=== PATIENT | female | born 1930 | race Caucasian/White ===

== ENCOUNTER 2017-01-17 12:10 | Inpatient (IN) | payer MEDICARE ==
[2017-01-17] VITALS (23 sets, daily range): BP systolic 84–118; BP diastolic 57–75
[~2017-01-17] VITALS: Ht 162.6 cm; Wt 63.5 kg
[2017-01-17] MEDS ORDERED: IV NS 0.9% 1,000 ML BAG IV ONE ×2 (12:30→14:00)
[2017-01-17] MEDS ORDERED: VANCOMYCIN 1 GM in IV D5W 250 ML IV ONE ×2 (12:30→14:30)
[2017-01-17] MEDS ORDERED: IV SET PRIMARY 1 EA INFUS.SET MC ONE (12:30)
[2017-01-17] MEDS ORDERED: ACETAMINOPHEN 650 MG/SUPP.RECT RC ONE ×2 (12:30)
[2017-01-17] MEDS ORDERED: DILTIAZEM HCL IV 125 MG in IV D5W 100 ML IV ONE (12:30)
[2017-01-17] MEDS ORDERED: CEFEPIME 1 GM in IV D5W 50 ML IV ONE (12:30)
[2017-01-17] MEDS ORDERED: DILTIAZEM HCL 25 MG IV IVP ONE (12:30)
[2017-01-17] MEDS ORDERED: IV NS 0.9% 2,000 ML ONE (12:30)
[2017-01-17] MEDS ORDERED: DILTIAZEM HCL 25 MG IV ONE (12:31)
[2017-01-17 12:34] LABS: BASOPHILS # (AUTO) 0.5 /CMM (0.0-0.2); BASOPHILS % (AUTO) 1.4 % (0.0-2.0); HEMATOCRIT 50 % (33-45); HEMOGLOBIN 16.5 g/dL (11.5-14.8); LYMPHOCYTES # (AUTO) 0.6 /CMM (0.8-4.8); LYMPHOCYTES % (AUTO) 1.7 % (20.0-44.0); MEAN CORPUSCULAR HEMOGLOBIN 28 PG (26.0-33.0); MEAN CORPUSCULAR HGB CONC 33 g/dl (31.0-36.0); MEAN CORPUSCULAR VOLUME 86 fL (82-100); MONOCYTES % (AUTO) 2.9 % (2.0-12.0); NEUTROPHILS # (AUTO) 33.9 /CMM (1.8-8.9); PLATELET COUNT (AUTO) 136 /CMM (150-450); RDW COEFFICIENT OF VARIATION 14.4 (11.5-15.0); RED BLOOD CELL COUNT(AUTO) 5.82 MIL/uL (4.0-5.2)
[2017-01-17] MEDS ORDERED: IV SET PRIMARY PUMP SET 1 EA INFUS.SET MC ONE ×5 (12:45→21:52)
[2017-01-17 12:49] LABS: INR 1.32 (0.87-1.13); PROTHROMBIN TIME 13.9 SECS (9.5-12.7)
[2017-01-17 12:50] LABS: ALBUMIN 3.1 g/dL (3.4-5.0); BILIRUBIN,DIRECT 0.3 mg/dL (0.0-0.2); CALCIUM, SERUM 9.1 mg/dL (8.5-10.1); CREATININE 3.3 mg/dL (0.6-1.3); POTASSIUM 3.9 mmol/L (3.5-5.1); TOTAL PROTEIN, SERUM 6.9 g/dL (6.4-8.2)
[2017-01-17 12:52] LABS: TROPONIN I 0.366 ng/mL (0.00-0.056)
[2017-01-17 12:58] LABS: LACTIC ACID 1.7 mmol/L (0.4-2.0)
--- NOTE | 2017-01-17 13:07 | NUR ---
CALLED PHARMACY FOR 2ND TIME TO F/U ON DRIP
[2017-01-17 13:08] LABS: BAND % (MANUAL) 3 % (0.0-5.0); LYMPHOCYTES % (MANUAL) 4 % (16-48); MONOCYTES % (MANUAL) 5 % (0-11.0); NEUTROPHILS % (MANUAL) 88 (42-76); PLATELET ESTIMATE DECREASED
[2017-01-17 13:09] LABS: APPEARANCE,URINE Cloudy (CLEAR); BLOOD, URINE Trace-intact Ery/uL (NEGATIVE); COLOR,URINE Dark (YELLOW); KETONES,URINE Negative (NEGATIVE); LEUKOCYTE ESTERASE ,URINE Negative (NEGATIVE); NITRITE, URINE Negative (NEGATIVE); PROTEIN,URINE 30 mg/dl (NEGATIVE); UGLUCOSE Negative (NEGATIVE); UROBILINOGEN,URINE 0.2 EU/dL (0.2)
[2017-01-17 13:10] LABS: BILIRUBIN,URINE SMALL (NEGATIVE)
--- NOTE | 2017-01-17 13:12 | NUR ---
Dr. CHEEK (PATIENT'S SISTER)
[2017-01-17 13:18] LABS: RBC,URINE 0-2 /HPF (0-2); WBC,URINE 0-3 /HPF (0-3)
[2017-01-17 13:19] LABS: ADD URINE CULTURE NO; BACTERIA,URINE None seen /HPF (None Seen); SQUAMOUS EPITHELIAL CELL,UR Few /HPF (None Seen); URINE AMORPHOUS URATE Moderate /HPF (None Seen)
--- NOTE | 2017-01-17 13:19 | NUR ---
DILTIAZEM DRIP INITIATED AT 10MG/HR PER MD, TITRATE TO KEEP HR <100. OK TO START DRIP WITH LOW BP. CALLED PHARMACY FOR LEVOPHED DRIP PER VERBAL ORDER.
--- NOTE | 2017-01-17 13:25 | NUR ---
PT NOTED TO HAVE SHALLOW, AGONAL RESPIRATIONS. MARKED INCREASE IN WORK OF BREATHING. MD AWARE. PT TO BE TRANSPORTED TO ER ROOM 5 IN PREPARATION FOR INTUBATION. RT NOTIFIED.
[2017-01-17] MEDS ORDERED: IV NS 0.9% 1,000 ML ONE (13:26)
[2017-01-17] MEDS ORDERED: NOREPINEPHRINE 8 MG in IV D5W 500 ML IV ONE (13:30)
[2017-01-17] MEDS ORDERED: DILTIAZEM HCL 25 MG IV IV ONE (13:30)
--- NOTE | 2017-01-17 13:40 | NUR ---
ETOMIDATE 20MG ADMINISTERED VIA LFA 16G IVP. SUCCINYLCHOLINE 110MG ADMINISTERED VIA LFA 16G IVP.
--- NOTE | 2017-01-17 13:44 | NUR ---
PT INTUBATED BY DR AN, 7.5 ETT 21 AT THE [facility]
--- NOTE | 2017-01-17 13:45 | NUR ---
VENT SETTING AC 14 TV 500 FIO2 40% PEEP +5
--- NOTE | 2017-01-17 13:47 | NUR ---
CARDIZEM GTT TITRATED TO 15MG/HR FOR HR 155
--- NOTE | 2017-01-17 13:50 | NUR ---
PT IS INTUBATED FOR AIRWAY PROTECTION. INTUBATED BY SAILAJA RODRIGUEZ WITH 7.5 MM ETT SECURED @ 21 CM LIPLINE. CO2 DETECTOR CHANGED IN GOLD COLOR. BREATH SOUNDS CLEAR BILATERAL WITH SYMMETRICAL CHEST RISE. APPEARS MOISTURE CONDENSATION IN ET TUBE, AC 14 VT 500 FIO2 40% PEEP +5 AMBUBAG @ BEDSIDE. Addendum: 01/17/17 at 1416 by BRUNILDA SHARPE RT Amended: Links added.
[2017-01-17] MEDS ORDERED: FENTANYL PF 100MCG/2ML AMPUL ONE (13:51)
[2017-01-17] MEDS ORDERED: MIDAZOLAM HCL 2 MG/2ML VIAL ONE (13:51)
--- NOTE | 2017-01-17 13:57 | NUR ---
2MG VERSED AND 100MCG FENTANYL ADMINISTERED IVP PER VERBAL ORDER OF DR AN VIA RFA 18G WHILE WAITING FOR FENTANYL AND VERSED DRIPS. PHARMACY AWARE OF DRIP ORDERS.
[2017-01-17] MEDS ORDERED: MIDAZOLAM HCL 100 MG in IV NS 0.9% 80 ML IV PRN (14:00)
[2017-01-17] MEDS ORDERED: FENTANYL PF 100MCG/2ML AMPUL IV ONE (14:00)
[2017-01-17] MEDS ORDERED: ASPIRIN 300 MG/SUPP.RECT RC ONE ×2 (14:00→14:06)
[2017-01-17] MEDS ORDERED: SUCCINYLCHOLINE CHLORIDE 20 MG/ML VIAL IV ONE ×2 (14:00→17:30)
[2017-01-17] MEDS ORDERED: MIDAZOLAM HCL 2 MG/2ML VIAL IV ONE (14:00)
[2017-01-17] MEDS ORDERED: FENTANYL CITRAT IV 2,500 MCG in IV NS 0.9% 200 ML IV PRN (14:00)
[2017-01-17] MEDS ORDERED: ETOMIDATE 2 MG/ML VIAL IV ONE ×2 (14:00→17:30)
--- NOTE | 2017-01-17 14:03 | NUR ---
ETT ADVANCED 1.5CM BY RT, PER MD
--- NOTE | 2017-01-17 14:17 | NUR ---
LEVOPHED TITRATED TO 8MCG.MIN FOR LOW BP
--- NOTE | 2017-01-17 14:18 | NUR ---
ET TUBE PUSHED IN FROM 21CM TO 22.5 CM PER ER MD. Addendum: 01/17/17 at 1419 by BRUNILDA SHARPE RT Amended: Links added.
[2017-01-17] MEDS ORDERED: SET PCA INFUSE SET 1 EA INFUS.SET MC ONE (14:20)
[2017-01-17] MEDS ORDERED: IV NS 0.9% 1,000 ML BAG IV SCH (14:30)
[2017-01-17] MEDS ORDERED: DEXAMETHASONE SOD PHOSPHATE 10 MG/ML VIAL IV SCH (14:30)
[2017-01-17] MEDS ORDERED: ACETAMINOPHEN 325 MG TABLET PO PRN (14:30)
[2017-01-17] MEDS ORDERED: ONDANSETRON HCL/PF 4 MG/2 ML VIAL IVP PRN (14:30)
[2017-01-17 15:32] LABS: ABG BASE EXCESS -4.6 mmol/L; ABG OXYGEN SATURATION 97.7 % (92.0-98.5); ABG PCO2 33.2 mmHg (35.0-45.0); ABG PH 7.385 (7.350-7.450); ABG PO2 125.7 mmHg (75.0-100.0); ABG TOTAL HEMOGLOBIN 14.3 G/dL (12.0-16.0); AaDO2 121.3 mmHg; COHb 0.3 % (0.5-1.5); MetHb 0.5 % (0.0-1.5); O2Hb 96.9 % (94.0-97.0); PEEP,BG 5 cm H2O; SITE, ABG Left Brachial; VT, ABG 500 mL
--- NOTE | 2017-01-17 15:35 | NUR ---
RT TITRATED FI02 FROM 40% TO 35% PER ABG RESULTS. ASK RT TO NOTIFY ADMITTING
[2017-01-17] MEDS ORDERED: ACET650S11 RC (15:43)
[2017-01-17] MEDS ORDERED: CLON0.1T PO (15:43)
[2017-01-17] MEDS ORDERED: ACET-73 PO ×2 (15:43→16:00)
[2017-01-17] MEDS ORDERED: AZIT250T PO (15:43)
[2017-01-17] MEDS ORDERED: SACC250C6 PO (15:43)
[2017-01-17] MEDS ORDERED: ACET325T53 PO (16:00)
[2017-01-17] MEDS ORDERED: BISA10SU61 RC (16:00)
[2017-01-17] MEDS ORDERED: CRAN425C PO (16:00)
[2017-01-17] MEDS ORDERED: LEVO25TA9 PO (16:00)
[2017-01-17] MEDS ORDERED: MAGN400O6 PO (16:00)
[2017-01-17] MEDS ORDERED: DOCU100T2 PO (16:00)
[2017-01-17] MEDS ORDERED: NA P133E RC (16:00)
[2017-01-17] MEDS ORDERED: MULT1TAB11 PO (16:05)
[2017-01-17] MEDS ORDERED: ZINC220T PO (16:05)
[2017-01-17] MEDS ORDERED: ASCO500T9 PO (16:05)
--- NOTE | 2017-01-17 16:05 | NUR ---
REMAINS INTUBATED ON ORDERED SETTINGS, TOLERATING WELL ON 35% FIO2. LEVOPHED RUNNING AT 8MCG/MIN, CARDIZEM RUNNING AT 15MG/HR, FENTANYL RUNNING AT 5.7ML/HR, VERSED RUNNING AT 2MG/HR
--- NOTE | 2017-01-17 16:16 | NUR ---
DR CHANDLER AT BEDSIDE. PER DR CHANDLER, TITRATE DOWN LEVOPHED AND INITIATE IV NS AT 125ML/HR MAINTENANCE FLUIDS.
--- NOTE | 2017-01-17 16:30 | NUR ---
JEANA RODRIGUEZ AT BEDSIDE
--- NOTE | 2017-01-17 16:42 | NUR ---
CALLED RT FOR SPUTUM CULTURE
--- NOTE | 2017-01-17 17:06 | NUR ---
REPORT GIVEN TO DAVI GRAJEDA FOR ADMISSION; ICU RM 263
--- NOTE | 2017-01-17 17:07 | NUR ---
TOLERATING ON VENT AT ORDERED SETTINGS. NO CHANGE. LEVOPHED TITRATED UP TO 8MCG/MIN FOR LOW BP
--- NOTE | 2017-01-17 17:09 | NUR ---
0 PEEP DUE TO 84/57 BP. Addendum: 01/17/17 at 1710 by BRUNILDA SHARPE RT Amended: Links added.
--- NOTE | 2017-01-17 17:29 | NUR ---
BRUNILDA LEW REMOVED PEEP FOR BP SUPPORT. SETTINGS FOLLOWS: AC 14 TV 500 FIO2 35% 0 PEEP
--- NOTE | 2017-01-17 17:55 | NUR ---
PT TRANSPORTED TO ICU RM 263 IN CRITICAL CONDITION WITH CARDIZEM, FENTANYL, VERSED, LEVOPHED, AND NS DRIPS ONGOING AT PREVIOUS SETTINGS.
[2017-01-17] MEDS ORDERED: PIPERACILLIN /TAZOBACTAM 4.5 G in IV D5W 100 ML IV SCH (18:00)
--- NOTE | 2017-01-17 18:05 | NUR ---
RN/ICU-ADMITTED THIS 86 Y/O MALE FROM ER PER ACLS PROTOCOL.NURSING FOCUS :SEPTIC SHOCK, PNA. ROUTINE ICU ADMISSION CARE INITIATED.PT. INTUBATED PER ETT, ON AV MODE. SATS.-100%,EKG ATRIAL FLUTTER W/ HR-93, BP-106/66. ON CARDIZEM DRIP AT 15MG/HR. ON LEVOPHED DRIP AT 6MCG/MIN. ON VERSED AND FENTANYL DRIP PER PROTOCOL. WILL TITRATE ALL DRIPS NEEDED PER PROTOCOL.PT. POST SEDATED, NO GUTIERREZ. ON NATHANIEL. SOFT WRIST RESTRAINTS ON PER PROTOCOL.AFEBRILE.NO S/S OF DISTRESS OR PAIN USING THE FLACC PAIN SCALE.
--- NOTE | 2017-01-17 18:30 | NUR ---
RN/ICU- SISTERLEANDRA( BY PROFESSION) CALLED UPDATED PT. STATUS. DUE EXPLANATION GIVEN.PLAN OF CARE DISCUSSED W/ SAME. VERBALIZED UNDERSTANDING.
--- NOTE | 2017-01-17 18:32 | NUR ---
PT TRANSFERRED FROM ER TO 263. PT USED SAME [facility] VENT. VENT PLUGGED INTO RED OUTLET WITH ALARM ON AND AUDIBLE. BECCA @ BEDSIDE. Addendum: 01/17/17 at 1833 by BRUNILDA SHARPE RT Amended: Links added.
[2017-01-17] MEDS ORDERED: IV NS 0.9% 1,000 ML IV PRN (19:00)
--- NOTE | 2017-01-17 19:00 | NUR ---
RN/ICU- PT. REMAINS CRITICAL,VITAL SIGNS WITHIN ACCEPTABLE RANGE. PT. IS A FULL CODE. WILL MONITOR CLOSELY PER PROTOCOL. REPORT GIVEN TO TARAS ROWE.
--- NOTE | 2017-01-17 19:30 | NUR ---
CALLED LINDA SANCHEZ REGARDING PT ORDERS FOR FENTANYL AND VERSED, PT WAS STARTED ON FENTANYL AND VERSED IN ER, THE ORDERS WERE DC'ED WHEN PT CAME TO ICU, WE NEED NEW ORDERS FOR SEDATION, LINDA SANCHEZ GAVE ORDER TO PLACE PT ON PROPOFOL AND CONTINUE CARDIZEM,
[2017-01-17] MEDS ORDERED: MEROPENEM 500 MG in IV NS 0.9% 50 ML IV SCH (20:00)
[2017-01-17] MEDS ORDERED: MEROPENEM 1 G in IV NS 0.9% 100 ML IV SCH (20:00)
--- NOTE | 2017-01-17 20:00 | NUR ---
TELECOM ANALYST - NOTES - RECEIVED PT IN BED ADMITTED FOR SEPTIC SHOCK 2ND TO PNA, PT IS INTUBATED WITH ETT 7.5 22.5 CM AC 14 500 35% 5.0 TOLERATING VENT WELL. PT IS ON FENTANYL AND VERSED, WILL SWITCH PT TO PROPOFOL SOON. PT IS ON LEVO @ 6 MCG PER HOUR AND NS @ 125 ML/HR. PT IS IN A FLUTTER, RATE CONTROLLED HR 80S, ON CARDIZEM @ 12 MG/HR. PUPILS ARE 1 PINPOINT AND SLUGGISH, SEDATED. WILL CONTINUE TO MONITOR
[2017-01-17] MEDS ORDERED: FEE PK DOSING 1 MIN EA MC ONE (20:07)
[2017-01-17] MEDS: methylPREDNISolone SOD SUCC 40 MG/ML VIAL IV SCH (20:17)
[2017-01-17] MEDS: PANTOPRAZOLE 40 MG VIAL IV SCH (20:17)
[2017-01-17] MEDS: ENOXAPARIN SODIUM 30 MG/0.3 ML DISP.SYRIN SQ SCH (20:18)
--- NOTE | 2017-01-17 20:20 | NUR ---
PT ROXIE ANDREWS CALLED FROM [facility] FOR INFORMATION ON HIS , I UPDATED HIM ON HER CONDITION AND PLAN OF CARE, HE WAS VERY THANKFUL FOR THE INFORMATION AND IF WE NEED TO CONTACT HIM WE CAN CALL [facility]
[2017-01-17] MEDS ORDERED: SECONDARY IV SET 1 EA INFUS.SET MC ONE (20:24)
[2017-01-17] MEDS ORDERED: DILTIAZEM HCL IV 125 MG in IV D5W 100 ML IV PRN (21:00)
[2017-01-17] MEDS: PROPOFOL 100 ML IV PRN (22:07)
--- NOTE | 2017-01-17 22:20 | NUR ---
FENTANYL 200 ML WASTED FROM BAG, VERSED 92 ML WASTED FROM BAG WITH WORKERS' COMPENSATION COMMISSIONER DAVI, NARCOTIC DOCUMENTATION PLACED IN MARINE PROPULSION TECHNICIAN BINDER, DAVI AND I FILLED OUT PART OF PAPER DOCUMENTING WASTED MEDICATION, LAUNDRY MANAGER RESPONSIBLE FOR DOCUMENTING START TIME
[2017-01-18] VITALS (68 sets, daily range): BP systolic 80–119; BP diastolic 42–81
[2017-01-18 05:02] LABS: HEMATOCRIT 42 % (33-45); HEMOGLOBIN 13.9 g/dL (11.5-14.8); LYMPHOCYTES # (AUTO) 0.4 /CMM (0.8-4.8); LYMPHOCYTES % (AUTO) 1.2 % (20.0-44.0); MEAN CORPUSCULAR HEMOGLOBIN 29 PG (26.0-33.0); MEAN CORPUSCULAR HGB CONC 33 g/dl (31.0-36.0); MEAN CORPUSCULAR VOLUME 87 fL (82-100); MONOCYTES # (AUTO) 0.7 /CMM (0.1-1.30); MONOCYTES % (AUTO) 2.2 % (2.0-12.0); NEUTROPHILS # (AUTO) 30.8 /CMM (1.8-8.9); NEUTROPHILS % (AUTO) 96.6 % (43.0-81.0); PLATELET COUNT (AUTO) 135 /CMM (150-450); RDW COEFFICIENT OF VARIATION 15.3 (11.5-15.0); RED BLOOD CELL COUNT(AUTO) 4.86 MIL/uL (4.0-5.2)
[2017-01-18 05:15] LABS: WHITE BLOOD COUNT (AUTO) 31.9 K/uL (4.3-11.0)
[2017-01-18 05:19] LABS: ALBUMIN 2.2 g/dL (3.4-5.0); BILIRUBIN,TOTAL 0.9 mg/dL (0.2-1.0); CREATININE 2.2 mg/dL (0.6-1.3); TOTAL PROTEIN, SERUM 5.2 g/dL (6.4-8.2)
[2017-01-18 05:43] LABS: ANISOCYTOSIS 1+; MONOCYTES % (MANUAL) 2 % (0-11.0); PLATELET ESTIMATE DECREASED
--- NOTE | 2017-01-18 05:58 | NUR ---
I LIFTED UP THE PTS RIGHT ARM TO PLACE A PILLOW AND THEN SHE BRADYS DOWN INTO THE 40S AND WENT INTO A JUNCTIONAL RHYTHM, CARDIZEM WAS TURNED OFF RIGHT AWAY, PROPOFOL WAS DECREASED TO 5 MCG/KG/MIN, I CALLED THE PILOT PLANT OPERATOR AND INCREASED THE LEVOPHED, BP WAS WNL. PT HR RATE INCREASED TO 60S, 12 LEAD EKG WAS ORDERED
[2017-01-18] MEDS: NOREPINEPHRINE 8 MG in IV D5W 500 ML IV PRN ×2 (07:13→20:02)
[2017-01-18] MEDS ORDERED: AMIODARONE 900 MG in IV D5W 482 ML IV PRN (07:30)
[2017-01-18] MEDS ORDERED: AMIODARONE 900 MG in IV D5W 500 ML IV PRN (07:30)
[2017-01-18] MEDS ORDERED: AMIODARONE 150 MG in IV D5W 100 ML IV ONE (07:30)
--- NOTE | 2017-01-18 07:30 | NUR ---
RN INITIAL NOTES PT IN BED, SEDATED WITH DIP @ 15 MCG, HOB ELEVATED 35 DEGREES. PT HAS ETT 7.5/22.5, SETTINGS AC 14, TV 500, FIO2 35%, PEEP 5, TOLERATING WELL. ON TELE MONITOR WITH AFIB 80'S, NO SIGNS OF DISTRESS NOTED. PT HAS JIMENEZ CATH DRAINING CLEAR YELLOW URINE. PLEASE REFER TO PTS CHART REGARDING SKIN. PT HAS BILATERAL SOFT WRIST RESTRAINTS, TWO FINGER SPACE, GOOD CIRCULATION; WILL REMOVE AND APPLY NECESSARY. IV ON LENORA PICC, RFA 18G, LEFT HAND 16G, LFA 18G, ALL CDI, NO SIGNS OF INFECTION/INFILTRATION NOTED; LENORA PICC RUNNING DIP @ 15 MCG, LEVO @ 8MCG, CARDIZEM @ 10 MG, AND NS @ 125 CC/HR, TOLERATING WELL. CALL LIGHT WITHIN EASY REACH, SAFETY MEASURES MAINTAINED, WILL CONTINUE TO MONITOR AND FOLLOW MD ORDERS. PT IN OVERALL STABLE CONDITION.
[2017-01-18] MEDS: IV NS 0.9% 1,000 ML IV PRN ×4 (07:42→23:49)
[2017-01-18] MEDS ORDERED: IV SET PRIMARY PUMP SET 1 EA INFUS.SET MC ONE ×4 (07:55→23:47)
[2017-01-18 08:08] LABS: TROPONIN I 0.118 ng/mL (0.00-0.056)
[2017-01-18 08:17] LABS: THYROID STIMULATING HORMONE 0.294 uIU/mL (0.358-3.74)
[2017-01-18] MEDS ORDERED: SECONDARY IV SET 1 EA INFUS.SET MC ONE (08:33)
--- NOTE | 2017-01-18 08:40 | NUR ---
RN NOTES PT SEEN BY DR. RAMESH MD SPOKE WITH PTS BROTHER AND BROTHERS SON WHO ARE AT BEDSIDE. NO NEW ORDERS GIVEN. PT IN STABLE CONDITION.
[2017-01-18] MEDS: POTASSIUM CL. PREMIX PERIPHER. 50 ML IV SCH ×6 (08:49→14:25)
[2017-01-18] MEDS: PANTOPRAZOLE 40 MG VIAL IV SCH (08:51)
[2017-01-18] MEDS: methylPREDNISolone SOD SUCC 40 MG/ML VIAL IV SCH ×3 (08:51→17:06)
--- NOTE | 2017-01-18 09:33 | NUR ---
RN NOTES PT SEEN BY DR. SONG, ORDER GIVEN FOR SOME LABS AND CT OF HEAD WITHOUT CONTRAST.
[2017-01-18] MEDS ORDERED: FIBERSOURCE HN 1,000 ML BOTTLE GT PRN (11:00)
[2017-01-18] MEDS: MEROPENEM 500 MG in IV NS 0.9% 50 ML IV SCH ×2 (11:38→20:00)
[2017-01-18] MEDS ORDERED: IV NS 0.9% 250 ML IV ONE (12:16)
[2017-01-18 12:54] LABS: BAND % (MANUAL) 2 % (0.0-5.0); LYMPHOCYTES % (MANUAL) 1 % (16-48); NEUTROPHILS % (MANUAL) 95 (42-76)
[2017-01-18] MEDS: PROPOFOL 100 ML IV PRN (13:18)
--- NOTE | 2017-01-18 16:16 | NUR ---
RN NOTES DURING SHIFT, MD WANTED TO INSERT EITHER NGT OR OGT AND TO START PT ON FIBERSOURCE @ 20CC/HR WITH GOAL OF 40CC/HR. TWO NURSES AND THE CHARGE NURSE TRIED TO INSERT THE TUBE BUT CAME ACROSS RESISTANCE. NOTIFIED MD. MD ALSO CAME TO TRY BUT COULD NOT INSERT EITHER. 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 MD AWARE OF URINE OUTPUT, WILL CONTINUE TO MONITOR AND NOTIFY MD IF PT STILL CONTINUES TO HAVE LOW OUTPUT. OVERALL PT IN STABLE CONDITION, VSS, AFEBRILE.
[2017-01-18] MEDS: LACTOBACILLUS RHAMNOSUS GG 1 EACH CAP.SPRINK GT SCH (16:36)
--- NOTE | 2017-01-18 19:10 | NUR ---
RN CLOSING NOTES PT IN STABLE CONDITION, ALL MD ORDERS CARRIED OUT, VSS, AFEBRILE, IV'S CDI, NO SIGNS OF INFECTION/INFILTRATION, F/C CDI, DRAINING CLEAR YELLOW URINE; US KIDNEYS JUST COMPLETED SHOWS NATHANIEL. CYSTS AND BLADDER IS EMPTY; NIGHT NURSE AWARE. ETT INTACT, TOLERATING VENT SETTINGS WELL. CALL LIGHT WITHIN EASY REACH, SAFETY MEASURES MAINTAINED, REPORT GIVEN TO NIGHT NURSE FOR CONTINUITY OF CARE. AMIO TO STOP AT 2228. DIP @ 15 MCG, LEVO STOPPED @ 1750, NS @ 250 RUNNING.
--- NOTE | 2017-01-18 19:37 | NUR ---
SIMULATION EDUCATOR: RECEIVED PT INTUBATED ETT 7.5/22.5,SEDATED WITH DIP @ 15 MCG, HOB ELEVATED 35 DEGREES. VENT SETTINGS AC 14, TV 500, FIO2 35%, PEEP 5, TOLERATING WELL. ON DEVICE ENGINEER WITH AFIB 100'S, NO SIGNS OF DISTRESS NOTED. PT HAS JIMENEZ CATH WITH LOW URINE OUTPUT. PT HAS BILATERAL SOFT WRIST RESTRAINTS, TWO FINGER SPACE, GOOD CIRCULATION; RELEASED AND REAPPLIED FOR SAFETY CONCERN. IV ON LENORA PICC, RFA 18G, LEFT HAND 16G, LFA 18G, ALL CDI, NO SIGNS OF INFECTION/INFILTRATION NOTED; LENORA PICC RUNNING NS @ 250 CC/HR, TOLERATING WELL. SAFETY MEASURES MAINTAINED,KEEP MONITORING CLOSELY. RENAL ULTRASOUND DONE.
[2017-01-18] MEDS: ENOXAPARIN SODIUM 30 MG/0.3 ML DISP.SYRIN SQ SCH (20:01)
[2017-01-19] VITALS (77 sets, daily range): BP systolic 101–144; BP diastolic 48–99
[2017-01-19] MEDS: PROPOFOL 100 ML IV PRN ×2 (01:27→15:22)
[2017-01-19] MEDS: IV NS 0.9% 1,000 ML IV PRN ×5 (04:15→22:25)
[2017-01-19 04:53] LABS: HEMATOCRIT 39 % (33-45); HEMOGLOBIN 12.8 g/dL (11.5-14.8); LYMPHOCYTES # (AUTO) 0.3 /CMM (0.8-4.8); LYMPHOCYTES % (AUTO) 1.5 % (20.0-44.0); MEAN CORPUSCULAR HEMOGLOBIN 29 PG (26.0-33.0); MEAN CORPUSCULAR HGB CONC 33 g/dl (31.0-36.0); MEAN CORPUSCULAR VOLUME 86 fL (82-100); MONOCYTES # (AUTO) 0.3 /CMM (0.1-1.30); MONOCYTES % (AUTO) 1.1 % (2.0-12.0); NEUTROPHILS % (AUTO) 97.4 % (43.0-81.0); PLATELET COUNT (AUTO) 119 /CMM (150-450); RDW COEFFICIENT OF VARIATION 15.5 (11.5-15.0); RED BLOOD CELL COUNT(AUTO) 4.48 MIL/uL (4.0-5.2); WHITE BLOOD COUNT (AUTO) 23.6 K/uL (4.3-11.0)
[2017-01-19 05:32] LABS: TROPONIN I 0.045 ng/mL (0.00-0.056)
[2017-01-19 05:33] LABS: ALBUMIN 1.9 g/dL (3.4-5.0); BILIRUBIN,TOTAL 0.6 mg/dL (0.2-1.0); CALCIUM, SERUM 8.1 mg/dL (8.5-10.1); CREATININE 1.6 mg/dL (0.6-1.3); MAGNESIUM 1.8 mg/dL (1.8-2.4); PHOSPHORUS 3.4 mg/dL (2.5-4.9); POTASSIUM 4.2 mmol/L (3.5-5.1); TOTAL PROTEIN, SERUM 5.2 g/dL (6.4-8.2)
[2017-01-19 06:47] LABS: BAND % (MANUAL) 1 % (0.0-5.0); LYMPHOCYTES % (MANUAL) 2 % (16-48); MONOCYTES % (MANUAL) 1 % (0-11.0); NEUTROPHILS % (MANUAL) 96 (42-76)
[2017-01-19 06:48] LABS: ANISOCYTOSIS 1+; PLATELET ESTIMATE DECREASED
--- NOTE | 2017-01-19 07:17 | NUR ---
VACUUM COOKER OPERATOR: AMIODARONE DRIP DONE, STILL HAVE AFIB ON MONITOR RATE OF 100-110. KEEP MONITORING...
--- NOTE | 2017-01-19 07:30 | NUR ---
RN INITIAL NOTES PT IN BED, SEDATED WITH DIP @ 15 MCG, HOB ELEVATED 35 DEGREES. PT HAS ETT 7.5/22.5, SETTINGS AC 14, TV 500, FIO2 35%, PEEP 5, TOLERATING WELL. ON TELE MONITOR WITH CONTROLLED AFIB 99, NO SIGNS OF DISTRESS NOTED. PT HAS JIMENEZ CATH DRAINING CLEAR YELLOW URINE. SKIN CDI. PT HAS BILATERAL SOFT WRIST RESTRAINTS, TWO FINGER SPACE, GOOD CIRCULATION; WILL REMOVE AND APPLY NECESSARY. IV ON LENORA PICC AND RFA 18G, BOTH CDI, NO SIGNS OF INFECTION/INFILTRATION NOTED; LENORA PICC RUNNING DIP @ 15 MCG AND NS @ 125 CC/HR, TOLERATING WELL. CALL LIGHT WITHIN EASY REACH, SAFETY MEASURES MAINTAINED, WILL CONTINUE TO MONITOR AND FOLLOW MD ORDERS. PT IN OVERALL STABLE CONDITION.
--- NOTE | 2017-01-19 08:00 | NUR ---
RN NOTES PTS EKG THIS MORNING SHOWS A.FLUTTER, DR. NARVAEZ WANTS TO CARDIOVERT, WHICH WAS DONE AT 0800. PT IS NOW SB 46. WILL CONTINUE TO MONITOR. BP 103/56.
[2017-01-19] MEDS: LACTOBACILLUS RHAMNOSUS GG 1 EACH CAP.SPRINK GT SCH (08:26)
[2017-01-19] MEDS: PANTOPRAZOLE 40 MG VIAL IV SCH (08:27)
[2017-01-19] MEDS: methylPREDNISolone SOD SUCC 40 MG/ML VIAL IV SCH ×3 (08:27→16:02)
--- NOTE | 2017-01-19 08:30 | NUR ---
RN NOTES PT SEEN BY DR. CHANDLER, NO NEW ORDERS.
[2017-01-19] MEDS: MEROPENEM 500 MG in IV NS 0.9% 50 ML IV SCH ×2 (08:31→20:25)
--- NOTE | 2017-01-19 08:49 | NUR ---
RN NOTES PT SEEN BY DR. QUIÑONEZ, ORDER TO GIVE ALBUMIN.
[2017-01-19] MEDS ORDERED: AMIODARONE HCL 200 MG TABLET PO SCH (09:00)
[2017-01-19 10:28] LABS: ABG BASE EXCESS -7.9 mmol/L; ABG OXYGEN SATURATION 94.4 % (92.0-98.5); ABG PCO2 24.6 mmHg (35.0-45.0); ABG PH 7.405 (7.350-7.450); ABG TOTAL HEMOGLOBIN 12.6 G/dL (12.0-16.0); COHb 0.3 % (0.5-1.5); MetHb 0.9 % (0.0-1.5); O2Hb 93.3 % (94.0-97.0); SITE, ABG Right Radial; VENT MODE, BG AC 14 500 35% +5
[2017-01-19] MEDS ORDERED: SECONDARY IV SET 1 EA INFUS.SET MC ONE ×2 (10:32→15:54)
[2017-01-19] MEDS: VANCOMYCIN 0.75 GM in IV D5W 250 ML IV SCH (10:38)
[2017-01-19] MEDS: ALBUMIN 25% 25 GM in PREMIX 1 EA IV SCH ×2 (10:39→16:45)
[2017-01-19] MEDS ORDERED: IV SET PRIMARY PUMP SET 1 EA INFUS.SET MC ONE ×2 (15:16→20:50)
--- NOTE | 2017-01-19 18:57 | NUR ---
RN CLOSING NOTES PT IN STABLE CONDITION, ALL MD ORDERS CARRIED OUT, VSS, AFEBRILE, IV'S CDI, NO SIGNS OF INFECTION/INFILTRATION, F/C CDI, DRAINING CLEAR YELLOW URINE. ETT INTACT, TOLERATING VENT SETTINGS WELL. CALL LIGHT WITHIN EASY REACH, SAFETY MEASURES MAINTAINED, REPORT GIVEN TO NIGHT NURSE FOR CONTINUITY OF CARE. DIP @ 15 MCG AND NS @ 150 RUNNING.
--- NOTE | 2017-01-19 19:28 | NUR ---
RAIL TRANSPORTATION OPERATOR: RECEIVED PT INTUBATED ETT 7.5/22.5,SEDATED WITH DIP @ 15 MCG, HOB ELEVATED , SAME VENT SETTINGS AC 14, TV 500, FIO2 35%, PEEP 5, TOLERATING WELL. ON DIRECTOR HOSPICE OPERATIONS SINUS RHYTHM RATE OF 55-65, S/P CARDIOVERSION THIS MORNING FOR AFIB AND AFLUTTER THEN CONVERTED TO SINUS RHYTHM, NO SIGNS OF DISTRESS NOTED. PT HAS JIMENEZ CATH DRAINING WELL, URINE OUTPUT IS IMPROVING. PT HAS BILATERAL SOFT WRIST RESTRAINTS, TWO FINGER SPACE, GOOD CIRCULATION; RELEASED AND REAPPLIED FOR SAFETY CONCERN. IV ON LENORA PICC, RFA 18G, IV FLUID NS AT 150 ML.HR KEEP MONITORING CLOSELY.
[2017-01-19] MEDS: ENOXAPARIN SODIUM 30 MG/0.3 ML DISP.SYRIN SQ SCH (20:27)
[2017-01-20] VITALS (54 sets, daily range): BP systolic 114–162; BP diastolic 54–82
[2017-01-20] MEDS: ALBUMIN 25% 25 GM in PREMIX 1 EA IV SCH (01:00)
[2017-01-20] MEDS: PROPOFOL 100 ML IV PRN ×2 (03:39→15:50)
[2017-01-20] MEDS: IV NS 0.9% 1,000 ML IV PRN ×3 (05:16→18:52)
[2017-01-20 05:30] LABS: HEMATOCRIT 28 % (33-45); HEMOGLOBIN 9.6 g/dL (11.5-14.8); LYMPHOCYTES # (AUTO) 0.1 /CMM (0.8-4.8); LYMPHOCYTES % (AUTO) 0.9 % (20.0-44.0); MEAN CORPUSCULAR HEMOGLOBIN 29 PG (26.0-33.0); MEAN CORPUSCULAR HGB CONC 34 g/dl (31.0-36.0); MEAN CORPUSCULAR VOLUME 86 fL (82-100); MONOCYTES # (AUTO) 0.4 /CMM (0.1-1.30); MONOCYTES % (AUTO) 2.8 % (2.0-12.0); NEUTROPHILS # (AUTO) 13.2 /CMM (1.8-8.9); NEUTROPHILS % (AUTO) 96.3 % (43.0-81.0); PLATELET COUNT (AUTO) 98 /CMM (150-450); RDW COEFFICIENT OF VARIATION 15.3 (11.5-15.0); RED BLOOD CELL COUNT(AUTO) 3.29 MIL/uL (4.0-5.2); WHITE BLOOD COUNT (AUTO) 13.7 K/uL (4.3-11.0)
[2017-01-20 05:42] LABS: CALCIUM, SERUM 8.1 mg/dL (8.5-10.1); CREATININE 1.2 mg/dL (0.6-1.3); MAGNESIUM 1.7 mg/dL (1.8-2.4); POTASSIUM 3.6 mmol/L (3.5-5.1)
[2017-01-20 06:30] LABS: BAND % (MANUAL) 2 % (0.0-5.0); LYMPHOCYTES % (MANUAL) 3 % (16-48); MONOCYTES % (MANUAL) 3 % (0-11.0); NEUTROPHILS % (MANUAL) 92 (42-76); PLATELET ESTIMATE DECREASED
--- NOTE | 2017-01-20 08:00 | NUR ---
PT RECVD INTUBATED TOLERATING CURRENT VENT SETTINGS AND SEDATED ON 15MCG OF DIPRIVAN. JIMENEZ CATHETER DRAINING YELLOW LIQUIDS. SBP IS STABLE NO PRESSORS IVF IS NS AT 150ML/H INTO RIGHT ARM PICC LINE. NSR IN THE 80'S CURRENTLY WITH EPISODES OF SINUS SHADY IN THE 40-50'S.
[2017-01-20] MEDS: methylPREDNISolone SOD SUCC 40 MG/ML VIAL IV SCH ×3 (08:02→16:17)
[2017-01-20] MEDS: PANTOPRAZOLE 40 MG VIAL IV SCH (08:02)
[2017-01-20] MEDS: MEROPENEM 500 MG in IV NS 0.9% 50 ML IV SCH ×2 (08:02→21:08)
--- NOTE | 2017-01-20 09:00 | NUR ---
DIPRIVAN TITRATED DOWN TO 5MCG/MIN FOR SEDATION VACATION. PT ABLE TO SQUEEZE HANDS ON COMMANDS. DOES NOT OPENS HER EYES ON COMMAND BUT FACIAL GRIMACING NOTED. RESPIATORY RATE 28-30 AND NOTED SHE IS BITING THE TUBE.
[2017-01-20] MEDS: VANCOMYCIN 0.75 GM in IV D5W 250 ML IV SCH (09:12)
--- NOTE | 2017-01-20 10:00 | NUR ---
PT'S SISTER CALLED AND SPOKE WITH THE CHARGE NURSE SHE IS SCHEDULED TO COME TOMORROW SHE HAS A 0300 FLIGHT
[2017-01-20 10:20] LABS: ABG BASE EXCESS -6.2 mmol/L; ABG OXYGEN SATURATION 94.6 % (92.0-98.5); ABG PCO2 24.7 mmHg (35.0-45.0); ABG PH 7.444 (7.350-7.450); ABG PO2 74.2 mmHg (75.0-100.0); ABG TOTAL HEMOGLOBIN 10.5 G/dL (12.0-16.0); AaDO2 146.6 mmHg; COHb 0.2 % (0.5-1.5); MetHb 1.2 % (0.0-1.5); O2Hb 93.3 % (94.0-97.0); PEEP,BG 5 cm H2O; SITE, ABG Left Radial; VT, ABG 500 mL
[2017-01-20] MEDS ORDERED: SECONDARY IV SET 1 EA INFUS.SET MC ONE (10:49)
[2017-01-20] MEDS: Magnesium 1GM/D5W 100ML PREMIX 100 ML IV SCH ×2 (10:58→12:32)
[2017-01-20] MEDS ORDERED: IV SET PRIMARY PUMP SET 1 EA INFUS.SET MC ONE ×2 (11:00→19:10)
--- NOTE | 2017-01-20 19:39 | NUR ---
BAR PILOT: RECEIVED PT INTUBATED ETT 7.5/22.5,SEDATED WITH DIP @ 15 MCG, HOB ELEVATED , SAME VENT SETTINGS AC 14, TV 500, FIO2 35%, NO PEEP. TOLERATING WELL. ON HANDHOLE MACHINE OPERATOR SINUS RHYTHM AND SINUS SHADY RATE OF 55-65, NO SIGNS OF DISTRESS NOTED. PT HAS JIMENEZ CATH DRAINING WELL, URINE OUTPUT IS IMPROVING NOW. PT HAS BILATERAL SOFT WRIST RESTRAINTS, TWO FINGER SPACE, GOOD CIRCULATION; RELEASED AND REAPPLIED FOR SAFETY CONCERN. IV ON LENORA PICC, RFA 18G, IV FLUID NS DECREASED TO 75 ML. 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 PT'S SISTER WORK A MD WILL BE HERE TOMORROW FROM [place] THEN PRIMARY WILL DISCUSS FURTHER PLAN OF CARE. OVERALL PT IN STABLE CONDITION. V/S STABLE. TURN AND REPOSITIONED FOR COMFORT AND SKIN PROTECTION. KEEP MONITORING CLOSELY.
[2017-01-20] MEDS: ENOXAPARIN SODIUM 30 MG/0.3 ML DISP.SYRIN SQ SCH (21:09)
[2017-01-21] VITALS (44 sets, daily range): BP systolic 102–186; BP diastolic 49–92
[2017-01-21] MEDS ORDERED: IV SET PRIMARY PUMP SET 1 EA INFUS.SET MC ONE ×2 (02:58→12:11)
[2017-01-21] MEDS: PROPOFOL 100 ML IV PRN ×2 (03:07→15:40)
--- NOTE | 2017-01-21 03:10 | NUR ---
MATHEMATICS DEPARTMENT CHAIR: PT'S BP KEEP GOING UP, 182/92, PAGED SIDE PANEL PADDER NEGROSY HOPE, AWAITING CALL BACK.
[2017-01-21] MEDS ORDERED: hydrALAZINE HCL IV 20 MG VIAL ONE (03:12)
--- NOTE | 2017-01-21 03:26 | NUR ---
STRIPPER MACHINE OPERATOR: NEW ORDER RECEIVED FROM DANIEL HOPE, HYDRALAZINE 10 MG IV X 1, GIVEN.
[2017-01-21] MEDS ORDERED: hydrALAZINE HCL IV 20 MG VIAL IV ONE (03:30)
[2017-01-21 05:21] LABS: HEMATOCRIT 36 % (33-45); HEMOGLOBIN 11.9 g/dL (11.5-14.8); LYMPHOCYTES # (AUTO) 0.1 /CMM (0.8-4.8); LYMPHOCYTES % (AUTO) 0.9 % (20.0-44.0); MEAN CORPUSCULAR HEMOGLOBIN 28 PG (26.0-33.0); MEAN CORPUSCULAR HGB CONC 33 g/dl (31.0-36.0); MEAN CORPUSCULAR VOLUME 85 fL (82-100); MONOCYTES # (AUTO) 0.3 /CMM (0.1-1.30); MONOCYTES % (AUTO) 1.7 % (2.0-12.0); NEUTROPHILS # (AUTO) 15.3 /CMM (1.8-8.9); NEUTROPHILS % (AUTO) 97.4 % (43.0-81.0); PLATELET COUNT (AUTO) 105 /CMM (150-450); RDW COEFFICIENT OF VARIATION 15.1 (11.5-15.0); RED BLOOD CELL COUNT(AUTO) 4.22 MIL/uL (4.0-5.2); WHITE BLOOD COUNT (AUTO) 15.7 K/uL (4.3-11.0)
[2017-01-21 05:42] LABS: CALCIUM, SERUM 8.5 mg/dL (8.5-10.1); MAGNESIUM 2.3 mg/dL (1.8-2.4); POTASSIUM 3.3 mmol/L (3.5-5.1)
[2017-01-21] MEDS: MORPHINE SULFATE INJ 2 MG/ML DISP.SYRIN IV PRN (07:31)
[2017-01-21] MEDS ORDERED: SECONDARY IV SET 1 EA INFUS.SET MC ONE ×2 (07:53→11:21)
[2017-01-21] MEDS: PANTOPRAZOLE 40 MG VIAL IV SCH (08:00)
[2017-01-21] MEDS: IV NS 0.9% 1,000 ML IV PRN (08:00)
[2017-01-21] MEDS: methylPREDNISolone SOD SUCC 40 MG/ML VIAL IV SCH ×3 (08:00→16:49)
[2017-01-21] MEDS: MEROPENEM 500 MG in IV NS 0.9% 50 ML IV SCH (08:00)
--- NOTE | 2017-01-21 08:00 | NUR ---
PT RECVD INTUBATED TOLERATING CURRENT VENT SETTINGS. VITALS STABLE. BLOOD PRESSURE IS HYPERTENSIVE AT 159/61. PER PM SHIFT SHE RECVD ONE DOSE OF HYDRALAZINE FOR SBP AT 180'S. JIMENEZ CATHETER DRAINING YELLOW FLUIDS. DIPRIVAN TITRATED UP TO 20MCG FROM 15MCG THE PT IS CLENCHING HER FISTS AND CHEWING ON THE ETT TUBE. RIGHT ARM PICC LINE DRESSING IS SOILED WITH BLOOD. DRESSING CHANGED USING STERILE TECHNIQUE, SIGNED TIMED AND DATED. PLAN FOR DISCUSSION WITH THE SISTER TODAY COMING IN FROM [place], TO DISCUSS WITH MD'S PLAN OF CARE FOR THE PT REGARDING THE METASTATIC MASS IN THE LEFT THYROID, AGGRESSIVE MEASURES VS COMFORT.
[2017-01-21 08:49] LABS: ABG OXYGEN SATURATION 93.4 % (92.0-98.5); ABG PCO2 22.8 mmHg (35.0-45.0); ABG PH 7.445 (7.350-7.450); ABG PO2 70.2 mmHg (75.0-100.0); AaDO2 152.8 mmHg; COHb 0.2 % (0.5-1.5); MetHb 0.9 % (0.0-1.5); O2Hb 92.4 % (94.0-97.0); SITE, ABG Right Radial
[2017-01-21] MEDS: VANCOMYCIN 0.75 GM in IV D5W 250 ML IV SCH (10:10)
[2017-01-21] MEDS: POTASSIUM CL. PREMIX PERIPHER. 50 ML IV SCH ×2 (11:39→12:41)
--- NOTE | 2017-01-21 15:04 | NUR ---
THE PATIENTS SISTER AND BROTHER LEANDRA GUILLEN AND VOLODYMYR PEREZ ARRIVED TO VISIT PATIENT. I EXPLAINED TO THEM THE SITUATION REGARDING THE VENTILATOR AND ETT TUBE AND AGGRESSIVE MEASURES VS HOSPICE MEASURES. AT THIS TIME THEY EXPLAINED THAT THE PATIENTS IS IN [facility] ([facility]). THEY STATE THAT HE IS ORIENTED ENOUGH TO MAKE MEDICAL DECISIONS. AT THIS TIME THEY WANT TO DISCUSS WITH HIM THE PATIENT'S CONDITION AND HIS WISHES AND THEN COME BACK TOMORROW AND SPEAK WITH MEDICAL TEAM FOR PLAN OF CARE.
--- NOTE | 2017-01-21 20:00 | NUR ---
ICU/RN- PT IN BED SEDATED. ON MONITOR W/ SHADY IN THE 50'S. ORALLY INTUBATED W/ MECH VENT TOLERATING WELL. NO S/SX OF RESP DISTRESS NOTED. LENORA PICC PATENT AND INTACT W/ DIPRIVAN @ 20MCG/KG/MIN AND NS @75 ML/HR. WILL TITRATE DIPRIVAN PER PROTOCOL FOR SEDATION. JIMENEZ IN PLACE W/ YELLOW URINE W/ SEDIMENT NOTED DRAINING WELL TO GRAVITY. REPOSITIONED FOR COMFORT. BED LOW AND IN LOCKED POSITION. WILL MONITOR PT ACCORDINGLY.
[2017-01-21] MEDS: MEROPENEM 1 G in IV NS 0.9% 100 ML IV SCH (20:42)
[2017-01-21] MEDS: ENOXAPARIN SODIUM 30 MG/0.3 ML DISP.SYRIN SQ SCH (20:45)
[2017-01-22] VITALS (49 sets, daily range): BP systolic 141–178; BP diastolic 62–98
[2017-01-22] MEDS: IV NS 0.9% 1,000 ML IV PRN (02:40)
[2017-01-22 03:29] LABS: CALCIUM, SERUM 7.9 mg/dL (8.5-10.1); CREATININE 0.9 mg/dL (0.6-1.3); POTASSIUM 3.6 mmol/L (3.5-5.1)
[2017-01-22] MEDS: VANCOMYCIN 0.75 GM in IV D5W 250 ML IV SCH ×2 (04:36→21:07)
[2017-01-22] MEDS: PROPOFOL 100 ML IV PRN ×2 (06:36→23:58)
--- NOTE | 2017-01-22 06:57 | NUR ---
ICU/RN- ALL NEEDS ATTENDED AND MET. NAD NOTED. WILL ENDORSE TO AM SHIFT FOR CONTINUATION OF CARE.
--- NOTE | 2017-01-22 07:20 | NUR ---
ICU/RN: PT RECEIVED, NO DISTRESS NOTED, BREATHING EVEN AND UNLABORED, IVF INFUSING WELL. SINUS BRADYCARDIA ON MONITOR, ASYMPTOMATIC. PT RESPONDS TO LIGHT PAIN, ABLE TO FOLLOW SOME COMMANDS. FC DRAINING WELL TO GRAVITY. WILL CONT TO MONITOR PT.
[2017-01-22] MEDS ORDERED: IV SET PRIMARY PUMP SET 1 EA INFUS.SET MC ONE ×3 (08:06→23:49)
[2017-01-22] MEDS: PANTOPRAZOLE 40 MG VIAL IV SCH (08:22)
[2017-01-22] MEDS: MEROPENEM 1 G in IV NS 0.9% 100 ML IV SCH (08:22)
[2017-01-22] MEDS: methylPREDNISolone SOD SUCC 40 MG/ML VIAL IV SCH ×3 (08:22→16:26)
[2017-01-22 08:23] LABS: HEMATOCRIT 34 % (33-45); LYMPHOCYTES # (AUTO) 0.2 /CMM (0.8-4.8); LYMPHOCYTES % (AUTO) 1.2 % (20.0-44.0); MEAN CORPUSCULAR HEMOGLOBIN 28 PG (26.0-33.0); MEAN CORPUSCULAR HGB CONC 33 g/dl (31.0-36.0); MEAN CORPUSCULAR VOLUME 85 fL (82-100); MONOCYTES # (AUTO) 0.1 /CMM (0.1-1.30); MONOCYTES % (AUTO) 0.6 % (2.0-12.0); NEUTROPHILS # (AUTO) 17.1 /CMM (1.8-8.9); NEUTROPHILS % (AUTO) 98.2 % (43.0-81.0); PLATELET COUNT (AUTO) 102 /CMM (150-450); RDW COEFFICIENT OF VARIATION 15.4 (11.5-15.0); RED BLOOD CELL COUNT(AUTO) 3.93 MIL/uL (4.0-5.2); WHITE BLOOD COUNT (AUTO) 17.4 K/uL (4.3-11.0)
--- NOTE | 2017-01-22 08:30 | NUR ---
ICU/RN: SEDATION VACATION: PT RESPONDS TO LIGHT PAIN AND TOUCH. ABLE TO FOLLOW SOME SIMPLE COMMANDS. PURPOSEFUL MOVEMENT OF ALL 4 EXTREMITIES, UPPER LIMBS ARE VERY CONTRACTED. PLACED BACK ON SEDATION DUE TO GAGGING AND BITING ON TUBE, FACIAL GRIMACING.
--- NOTE | 2017-01-22 09:21 | NUR ---
ICU/RN: DR QUIÑONEZ AT THE BEDSIDE FOR NEPHROLOGY CONSULT; INFORMED OF ABN LABS, WITH TEA-COLORED, BHAVIK URINE WITH MINIMAL FC OUTPUT. AWAITING ORDERS.
[2017-01-22] MEDS: IV D5W 1,000 ML IV SCH (10:06)
--- NOTE | 2017-01-22 15:00 | NUR ---
ICU/RN: BED BATH RENDERED, PT TOLERATED WELL.
[2017-01-22] MEDS ORDERED: Z GUARD REMEDY 2 OZ OINT TP PRN (17:00)
--- NOTE | 2017-01-22 17:38 | NUR ---
RT END OF THE SHIFT REPORT: PT. 86 YEAR OLD FEMALE REMAIN ORALLY INTUBATED ETT# 7.5 @ 23 CM LIP LINE ON VENT WITH NOTED SETTINGS. ALARMS ARE SET AND FUNCTIONAL. EQUAL CHEST RISE NOTED AND NO RESPIRATORY DISTRESS NOTED T/O SHIFT. VENT PLUGGED INTO RED OUTLET AND HME CHANGED SMELTING ENGINEER DONE AND PT. REMAIN STABLE. B/S RALES BILATERALLY SUX'D FOR MINIMAL AMT REDDISH SECRETIONS. AMBU BAG AT THE BEDSIDE. CONTINUE FOR MONITOR AND REPORT WILL PASS BE TO MOTION PICTURE NARRATOR. Addendum: 01/22/17 at 1740 by RAE RAINEY RT Amended: Links added.
--- NOTE | 2017-01-22 19:07 | NUR ---
PT RCVD ORALLY INTUBATED WITH 7.5 ETT AT 23 CM [facility] WITH NOTED SETTINGS. SUCTION MODERATE AMOUNT OF THIN BLOODY SECRETIONS. VENT ALARM CHECKED AND WORKING. VENT PLUGGED INTO RED OUTLET. AMBU BAG AT BEDSIDE. WILL CONTINUE TO MONITOR.
[2017-01-22] MEDS: ENOXAPARIN SODIUM 30 MG/0.3 ML DISP.SYRIN SQ SCH (21:08)
[2017-01-23] VITALS (40 sets, daily range): BP systolic 95–178; BP diastolic 51–117
[2017-01-23 05:17] LABS: EOSINOPHILS % (AUTO) 0.2 % (0.0-6.0); HEMATOCRIT 34 % (33-45); HEMOGLOBIN 11.4 g/dL (11.5-14.8); LYMPHOCYTES # (AUTO) 0.3 /CMM (0.8-4.8); LYMPHOCYTES % (AUTO) 1.7 % (20.0-44.0); MEAN CORPUSCULAR HEMOGLOBIN 29 PG (26.0-33.0); MEAN CORPUSCULAR HGB CONC 34 g/dl (31.0-36.0); MEAN CORPUSCULAR VOLUME 85 fL (82-100); MONOCYTES # (AUTO) 0.3 /CMM (0.1-1.30); MONOCYTES % (AUTO) 1.7 % (2.0-12.0); NEUTROPHILS # (AUTO) 14.7 /CMM (1.8-8.9); NEUTROPHILS % (AUTO) 96.4 % (43.0-81.0); PLATELET COUNT (AUTO) 108 /CMM (150-450); RDW COEFFICIENT OF VARIATION 14.8 (11.5-15.0); RED BLOOD CELL COUNT(AUTO) 3.97 MIL/uL (4.0-5.2); WHITE BLOOD COUNT (AUTO) 15.3 K/uL (4.3-11.0)
[2017-01-23] MEDS: IV D5W 1,000 ML IV SCH (05:27)
[2017-01-23 05:37] LABS: CALCIUM, SERUM 7.7 mg/dL (8.5-10.1); CREATININE 0.7 mg/dL (0.6-1.3); MAGNESIUM 1.7 mg/dL (1.8-2.4); PHOSPHORUS 3.2 mg/dL (2.5-4.9); POTASSIUM 3.1 mmol/L (3.5-5.1)
--- NOTE | 2017-01-23 07:00 | NUR ---
LITIGATION SECRETARY- INITIAL NOTE RECEIVED PT SEDATED, ORALLY INTUBATED WITH ETT 7.5, 23 @ THE LIP. ON MECHANICAL VENT, SETTINGS ORDERED, RESPIRATIONS EVEN AND UNLABORED, NO SOB OR DISTRESS PRESENT. BEDSIDE MONITOR REVEALS SINUS SHADY, HR= 50. JIMENEZ CATHETER DRAINING CLOUDY, YELLOW URINE WITH SEDIMENTS. TWO IVS PRESENT: 1) RFA 18G HL AND 2) LENORA PICC LINE CURRENTLY RUNNING DIPRIVAN @ 15 MCG/MIN AND 2) D5W @ 50 MLS/HR. PT CONTINUES ON BILATERAL SOFT WRIST RESTRAINTS. SAFETY MEASURES TAKEN: BED LOCKED AND IN LOW POSITION, SIDE RAILS UP X2 AND BED ALARM ON, WILL CONTINUE TO MONITOR.
--- NOTE | 2017-01-23 07:30 | NUR ---
SUPREME COURT JUSTICE- SEDATION VACATION STOPPED DIPRIVAN TO ASSESS PT'S NEUROLOGICAL STATUS. PT REMAINS SEDATED, UNRESPONSIVE TO TOUCH OR PAINFUL STIMULI. 0930- DIPRIVAN RESTARTED AT 15 MCG/MIN. PT NOT FULLY AWAKE, VITAL SIGNS NOT STABLE (BP= 173/117, HR= 110 SINCE DIPRIVAN STOPPED) AND PT UNABLE TO FOLLOW SIMPLE COMMANDS. PT DISPLAYS MILD FACIAL GRIMACING. 1000- DIPRIVAN DECREASED TO 10 MCG/MIN.
[2017-01-23] MEDS: PANTOPRAZOLE 40 MG VIAL IV SCH (08:24)
[2017-01-23] MEDS: methylPREDNISolone SOD SUCC 40 MG/ML VIAL IV SCH ×3 (08:24→16:43)
[2017-01-23] MEDS: Magnesium 1GM/D5W 100ML PREMIX 100 ML IV SCH ×2 (09:00→10:00)
[2017-01-23] MEDS ORDERED: IV SET PRIMARY PUMP SET 1 EA INFUS.SET MC ONE ×2 (09:00→10:28)
[2017-01-23] MEDS: POTASSIUM CL. PREMIX PERIPHER. 50 ML IV SCH ×6 (09:00→13:53)
[2017-01-23] MEDS: PROPOFOL 100 ML IV PRN (10:33)
[2017-01-23] MEDS: VANCOMYCIN 0.75 GM in IV D5W 250 ML IV SCH (16:43)
--- NOTE | 2017-01-23 18:15 | NUR ---
FISH AND GAME WARDEN- PT NOTED WITH ELEVATED BP 177/111, HR= 106 AND DISPLAYING FACIAL GRIMACING, S/S OF DISCOMFORT. WILL ADMINISTER MORPHINE 1 MG PRN ORDERED. WILL CONTINUE TO MONITOR. Addendum: 01/23/17 at 1900 by KEVIN FISHMAN RN DIPRIVAN INCREASED TO 15 MCG/MIN AT 1800.
--- NOTE | 2017-01-23 18:23 | NUR ---
RT END OF THE SHIFT REPORT: PT. 86 YEAR OLD FEMALE REMAIN ORALLY INTUBATED ETT# 7.5 @ 23 CM LIP LINE ON VENT WITH NOTED SETTINGS. ALARMS ARE SET AND FUNCTIONAL. EQUAL CHEST RISE NOTED AND BITING TUBE NOTED NOTED T/O SHIFT AND BITE BLOCK INSERTED. VENT PLUGGED INTO RED OUTLET AND HME CHANGED BLOCK BREAKER OPERATOR DONE AND PT. REMAIN STABLE. B/S RALES BILATERALLY SUX'D FOR MINIMAL AMT REDDISH SECRETIONS. AMBU BAG AT THE BEDSIDE. CONTINUE FOR MONITOR AND REPORT WILL PASS BE TO MUSIC THEORY TEACHER. Addendum: 01/23/17 at 1824 by RAE RAINEY RT Amended: Links added.
[2017-01-23] MEDS: MORPHINE SULFATE INJ 2 MG/ML DISP.SYRIN IV PRN (18:41)
[2017-01-23] MEDS: ENOXAPARIN SODIUM 30 MG/0.3 ML DISP.SYRIN SQ SCH (20:14)
[2017-01-24] VITALS (38 sets, daily range): BP systolic 93–183; BP diastolic 43–93
[2017-01-24] MEDS: MORPHINE SULFATE INJ 2 MG/ML DISP.SYRIN IV PRN ×2 (01:17→10:50)
[2017-01-24] MEDS: IV D5W 1,000 ML IV SCH ×2 (02:46→18:32)
[2017-01-24] MEDS: PROPOFOL 100 ML IV PRN ×2 (02:46→16:49)
[2017-01-24 05:00] LABS: HEMATOCRIT 32 % (33-45); LYMPHOCYTES # (AUTO) 0.3 /CMM (0.8-4.8); LYMPHOCYTES % (AUTO) 2.4 % (20.0-44.0); MEAN CORPUSCULAR HEMOGLOBIN 29 PG (26.0-33.0); MEAN CORPUSCULAR HGB CONC 34 g/dl (31.0-36.0); MEAN CORPUSCULAR VOLUME 84 fL (82-100); MONOCYTES # (AUTO) 0.4 /CMM (0.1-1.30); MONOCYTES % (AUTO) 2.6 % (2.0-12.0); NEUTROPHILS # (AUTO) 12.9 /CMM (1.8-8.9); PLATELET COUNT (AUTO) 111 /CMM (150-450); RDW COEFFICIENT OF VARIATION 14.6 (11.5-15.0); RED BLOOD CELL COUNT(AUTO) 3.86 MIL/uL (4.0-5.2); WHITE BLOOD COUNT (AUTO) 13.6 K/uL (4.3-11.0)
[2017-01-24 05:13] LABS: CALCIUM, SERUM 7.5 mg/dL (8.5-10.1); CREATININE 0.6 mg/dL (0.6-1.3); POTASSIUM 3.6 mmol/L (3.5-5.1)
--- NOTE | 2017-01-24 07:05 | NUR ---
DISCHARGE PLANNER NOTES RECEIVED PATIENT SEDATED , RESPONSIVE TO PAIN STIMULI , NOT IN ACUTE DISTRESS , RESPIRATIONS EVEN AND UNLABORED WITH SPO2 OF 100% VIA MECHANICAL VENT SETTINGS ORDERED , ETT OF 7.02/[address] SB 35 ON BEDSIDE MONITOR , FC DRAINING VIA GRAVITY WITH CLEAR YELLOW URINE WITH SEDIMENTS , ON KCI MATTRESS , LENORA PICC LINE PATENT AND INTACT , WITH D5W @ 50ML/HR , DIPRIVAN @ 15MGC/MIN , INFUSING WELL , ALL NEEDS ATTENDED , BED ON LOW AND LOCKED POSITION , SIDE RAILS X2 , HOB @ 45 , WILL CONTINUE TO MONITOR
[2017-01-24] MEDS: POTASSIUM CL. PREMIX PERIPHER. 50 ML IV SCH ×2 (07:58→09:02)
--- NOTE | 2017-01-24 08:00 | NUR ---
SALES SUPPORT SPECIALIST NOTES PT ON SEDATION VACATION , WILL CONTINUE TO MONITOR
[2017-01-24] MEDS: PANTOPRAZOLE 40 MG VIAL IV SCH (08:01)
[2017-01-24] MEDS: methylPREDNISolone SOD SUCC 40 MG/ML VIAL IV SCH ×3 (08:01→16:48)
--- NOTE | 2017-01-24 08:09 | NUR ---
AQUARIST NOTES DR QUIÑONEZ AT BEDSIDE ,DISCUSSED LABS , AFEBRILE , SB 35-40 ON BEDSIDE MONITOR , IV OF D5W @ 50ML/HR INFUSING WELL , K OF 3.6 REPLACED WITH 20 MEQ KCL , CA OF 7.5 , BP OF 135/55 , WITH ADEQUATE URINE OUTPUT VIA FC , PENDING FAMILY DECISION FOR EXTUBATION VS MD AMRIT COMER
--- NOTE | 2017-01-24 09:00 | NUR ---
MINING ENGINEER NOTES DR ALVARENGA AT BEDSIDE , DISCUSSED LABS , CHEST XRAY , NOTIFIED PT STABLE TOLERATING CURRENT VENT SETTINGS WITH NO S/S OF DISTRESS , OFF SEDATION AT THIS TIME , NOTIFIED PT WAS ON DISTRESS YESTERDAY OFF SEDATION , NOTED WITH GRIMACING , RESPONSIVE TO PAIN STIMULI , MD AWARE , PENDING DECISION FOR THE PLAN OF CARE.
--- NOTE | 2017-01-24 09:30 | NUR ---
WOODENWARE ASSEMBLER NOTES DIPRIVAN RE STARTED , PT NOTED WITH DISCOMFORT AND DISTRESS , FACIAL GRIMACE , BP OF 180 /89 , HR OF 110 , VENT ALARM BEEPING , PIETER TO RESPOND TO PAIN STIMULI , WILL CONTINUE TO MONITOR
[2017-01-24] MEDS: VANCOMYCIN 0.75 GM in IV D5W 250 ML IV SCH (10:06)
--- NOTE | 2017-01-24 10:49 | NUR ---
WOUND CARE CONSULT PATIENT SEEN AND SKIN INTEGRITY ASSESSMENT DONE. PLEASE SEE HAND PACKAGER ASSESSMENT IN [facility] FOR TODAY. PATIENT PRESENTS WITH INDENTATION/DIMPLE LIKE AREA TO THE SACRAL REGION POA. THERE IS NO DRNG NOTED AND DOES NOT APPEAR TO BE AN OPEN WOUND, HOWEVER IS POA. PATIENT ALSO PRESENTS WITH RAISED UREÑA CALLUS TO THE LEFT PLANTAR FOOT POA. DTI TO THE RIGHT HEEL AND BLANCHABLE REDNESS TO THE LEFT HEEL POA. PATIENT WITH YOJANA AT 12. 1ST STEP LOW AIRLOSS MATTRESS IN USE FOR SKIN MANAGEMENT. RECOMMEND CONTINUE TURNING SCHED Q2 HOURS AND BILATERAL HEEL FLOATING. ALL DISCUSSED WITH NURSING AT THE BEDSIDE. MD IN AGREEMENT WITH PLAN OF CARE. CONTINUE ALL PREVENTION MEASURES PER CURRENTL PLAN OF CARE. Z GUARD ORDERED FOR SKIN/MOISTURE MANAGEMENT. Addendum: 01/24/17 at 1054 by ANA DE LA FUENTE WNDNU Amended: Links added.
--- NOTE | 2017-01-24 12:43 | NUR ---
ELECTRICIAN APPRENTICE POWERHOUSE NOTES DR MAGUIRE ST BEDSIDE , NOTIFIED PT LABS , CHEST XRAY AND V/S ,AFEBRILE , WAITING FOR DECISION REGARDING PLAN OF CARE , MD AWARE
[2017-01-24] MEDS ORDERED: IV SET PRIMARY PUMP SET 1 EA INFUS.SET MC ONE (16:38)
--- NOTE | 2017-01-24 17:05 | NUR ---
PRESS TENDER SHORT GOODS NOTES CRISTINA AT BEDSIDE , DISCUSSED LABS , CHEST XRAY , AFEBRILE , NO BM AT THIS TIME TOLERATING CURRENT VENT SETTINGS , PER PSYCHOLOGIST DEVELOPMENTAL SHE WILL ORDER REPEAT BLOOD CULTURE , SAMPLE CAN BE OBTAINED FROM PICC LINE , ORDERS CARRIED OUT
--- NOTE | 2017-01-24 17:43 | NUR ---
RT PATIENT REMAINED STABLE THROUGHOUT SHIFT WITH NO SIGNIFICANT EVENTS OCCURRED. PER DR ALVARENGA KEEP CURRENT VENT SETTINGS WITH NO CHANGES. Addendum: 01/24/17 at 1743 by MAGDA KOTHARI RT Amended: Links added.
--- NOTE | 2017-01-24 20:21 | NUR ---
PT FOUND ON VENT SETTINGS AC 14, 450, 40%, +5. Addendum: 01/24/17 at 2021 by WESTLEY ESTEVES RT Amended: Links added.
[2017-01-24] MEDS: ENOXAPARIN SODIUM 30 MG/0.3 ML DISP.SYRIN SQ SCH (21:04)
[2017-01-25] VITALS (43 sets, daily range): BP systolic 111–169; BP diastolic 53–87
[2017-01-25] MEDS ORDERED: IV SET PRIMARY PUMP SET 1 EA INFUS.SET MC ONE ×2 (02:59→21:01)
[2017-01-25 03:14] LABS: BASOPHILS # (AUTO) 0.1 /CMM (0.0-0.2); BASOPHILS % (AUTO) 0.8 % (0.0-2.0); HEMATOCRIT 36 % (33-45); LYMPHOCYTES # (AUTO) 0.3 /CMM (0.8-4.8); LYMPHOCYTES % (AUTO) 2.2 % (20.0-44.0); MEAN CORPUSCULAR HEMOGLOBIN 28 PG (26.0-33.0); MEAN CORPUSCULAR HGB CONC 33 g/dl (31.0-36.0); MEAN CORPUSCULAR VOLUME 85 fL (82-100); MONOCYTES # (AUTO) 0.2 /CMM (0.1-1.30); MONOCYTES % (AUTO) 1.4 % (2.0-12.0); NEUTROPHILS # (AUTO) 12.2 /CMM (1.8-8.9); NEUTROPHILS % (AUTO) 95.6 % (43.0-81.0); PLATELET COUNT (AUTO) 130 /CMM (150-450); RDW COEFFICIENT OF VARIATION 14.8 (11.5-15.0); RED BLOOD CELL COUNT(AUTO) 4.29 MIL/uL (4.0-5.2); WHITE BLOOD COUNT (AUTO) 12.7 K/uL (4.3-11.0)
[2017-01-25 03:48] LABS: CALCIUM, SERUM 7.8 mg/dL (8.5-10.1); CREATININE 0.7 mg/dL (0.6-1.3); POTASSIUM 3.9 mmol/L (3.5-5.1)
[2017-01-25] MEDS: VANCOMYCIN 0.75 GM in IV D5W 250 ML IV SCH ×2 (04:18→21:35)
[2017-01-25] MEDS: PROPOFOL 100 ML IV PRN ×3 (05:26→21:00)
--- NOTE | 2017-01-25 07:57 | NUR ---
RT PT RECEIVED ORALLY INTUBATED WITH A 7.5 ETT SECURED AT 23CM AT THE LIP LINE. PT IS ON THE VENT WITH NOTED SETTINGS. VENT ALARMS ARE SET AND AUDIBLE WITH BVM BY BEDSIDE. ACCOUNTING RECRUITER CUFF PRESSURE NOTED. VENT IS PLUGGED INTO RED OUTLET. SX BLOOD TINGED SECRETIONS. NO RESPIRATORY DISTRESS NOTED AT THIS TIME, WILL CONTINUE TO MONITOR. Addendum: 01/25/[address] RT Amended: Links added.
[2017-01-25 08:50] LABS: ABG OXYGEN SATURATION 96.2 % (92.0-98.5); ABG PCO2 28.7 mmHg (35.0-45.0); ABG PH 7.438 (7.350-7.450); ABG PO2 92.9 mmHg (75.0-100.0); ABG TOTAL HEMOGLOBIN 12.9 G/dL (12.0-16.0); AaDO2 159.3 mmHg; COHb 0.2 % (0.5-1.5); MetHb 0.7 % (0.0-1.5); O2Hb 95.3 % (94.0-97.0); PEEP,BG 5 cm H2O; SITE, ABG Right Radial; VT, ABG 450 mL
--- NOTE | 2017-01-25 11:00 | NUR ---
ICU/RN MIGULE/RN FROM [facility] WAS NOT ABLE TO CHART AND GIVE MEDICATIONS. A CHARGE NURSE I HELP HER TO GIVE MEDS AND CHARTED ON HER PATIENTS.MEDICATIONS WAS GIVEN ON TIME ,BUT CHARTED LATER.
[2017-01-25] MEDS: PANTOPRAZOLE 40 MG VIAL IV SCH (11:17)
[2017-01-25] MEDS: methylPREDNISolone SOD SUCC 40 MG/ML VIAL IV SCH ×3 (11:17→17:01)
[2017-01-25 12:38] LABS: INR 1.07 (0.87-1.13); PROTHROMBIN TIME 11.5 SECS (9.5-12.7)
--- NOTE | 2017-01-25 14:17 | NUR ---
TRIED CALLING TWICE TO LEANDRA GUILLEN [phone] TO GET CONSENT FOR US GUIDED THORACENTESIS. LEFT TWO MESSAGES (HIPPA COMPLIANT) AWAITING CALL BACK. CHARTING ON BEHALF OF FLAT LOCK MACHINE OPERATOR CHERYL WHO HAS LIMITED ACCESS TO [employer] AT THIS TIME. Addendum: 01/25/17 at 1427 by HAYLEY KENT RN CALLED AGAIN TO TRY AND OBTAIN CONSENT, LEFT 3RD MESSAGE. I ALSO CALLED [facility] TO VERIFY THE PHONE NUMBER FOR NEXT OF KIN. THEY GAVE ME THE SAME NUMBER FOR THE SISTER LEANDRA BENDER [phone]
--- NOTE | 2017-01-25 14:53 | NUR ---
LEANDRA GUILLEN CALLED AND GIVES CONSENT FOR ULTRASOUND GUIDED THORACENTESIS. I VERIFIED THE TELEPHONE CONSENT WITH THE PRIMARY RN LENO.
[2017-01-25] MEDS ORDERED: IV SET PRIMARY 1 EA INFUS.SET MC ONE (16:16)
[2017-01-25] MEDS: IV D5W 1,000 ML IV SCH (16:58)
[2017-01-25] MEDS ORDERED: SECONDARY IV SET 1 EA INFUS.SET MC ONE (18:20)
--- NOTE | 2017-01-25 18:55 | NUR ---
DR. RAMIRES CONTACTED ABOUT PT'S SBP HIGH 180'S HE ORDERS TO RESTART THE CLONIDINE FROM HOME MEDS: CLONIDINE 0.1 MG Q2HRS PO PRN FOR SBP >170. 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
[2017-01-25] MEDS ORDERED: CLONIDINE HCL 0.1 MG TABLET NG PRN (19:00)
[2017-01-25] MEDS: ENOXAPARIN SODIUM 30 MG/0.3 ML DISP.SYRIN SQ SCH (20:59)
[2017-01-26] VITALS (46 sets, daily range): BP systolic 88–152; BP diastolic 50–97
--- NOTE | 2017-01-26 02:00 | NUR ---
STENCIL CUTTER MACHINE : BED BATH GIVEN AND TOLERATED WELL. CONTINUE TO MONITOR.
[2017-01-26] MEDS: PROPOFOL 100 ML IV PRN ×3 (03:02→19:01)
[2017-01-26 04:24] LABS: BASOPHILS # (AUTO) 0.2 /CMM (0.0-0.2); BASOPHILS % (AUTO) 1.2 % (0.0-2.0); HEMATOCRIT 38 % (33-45); HEMOGLOBIN 12.4 g/dL (11.5-14.8); LYMPHOCYTES # (AUTO) 0.2 /CMM (0.8-4.8); LYMPHOCYTES % (AUTO) 1.6 % (20.0-44.0); MEAN CORPUSCULAR HEMOGLOBIN 28 PG (26.0-33.0); MEAN CORPUSCULAR HGB CONC 33 g/dl (31.0-36.0); MEAN CORPUSCULAR VOLUME 84 fL (82-100); MONOCYTES # (AUTO) 0.3 /CMM (0.1-1.30); MONOCYTES % (AUTO) 1.8 % (2.0-12.0); NEUTROPHILS # (AUTO) 15.1 /CMM (1.8-8.9); NEUTROPHILS % (AUTO) 95.4 % (43.0-81.0); PLATELET COUNT (AUTO) 152 /CMM (150-450); RDW COEFFICIENT OF VARIATION 14.9 (11.5-15.0); RED BLOOD CELL COUNT(AUTO) 4.45 MIL/uL (4.0-5.2); WHITE BLOOD COUNT (AUTO) 15.9 K/uL (4.3-11.0)
[2017-01-26 04:46] LABS: CALCIUM, SERUM 7.9 mg/dL (8.5-10.1); CREATININE 0.6 mg/dL (0.6-1.3); POTASSIUM 3.7 mmol/L (3.5-5.1)
[2017-01-26 05:07] LABS: LYMPHOCYTES % (MANUAL) 2 % (16-48); MONOCYTES % (MANUAL) 8 % (0-11.0); NEUTROPHILS % (MANUAL) 90 (42-76); PLATELET ESTIMATE DECREASED
--- NOTE | 2017-01-26 07:10 | NUR ---
RN INITIAL NOTES RECEIVED PT SEDATED, ON DIPRIVANA T 25MCH/KG/MIN. INTUBATED. ON MECHANICAL VENT WITH FF SETTINGS: AC14, TV450, FI02 40%, PEEP +5. NO RESPIRATORY DISTRESS NOTED. NO SOB NOTED. NO SIGNS OF PAIN NOTED. KEPT HOB ELEVATED. LENORA PICC LINE IN PLACE. ON D5W AT 50ML/HR. PT NPO. FC IN PLACE. NO HEMATURIA NOTED. FOR US GUIDED THORACENTESIS TODAY. KEPT COMFORTABLE. WILL CONTINUE TO MONITOR.
[2017-01-26] MEDS: methylPREDNISolone SOD SUCC 40 MG/ML VIAL IV SCH ×3 (08:31→16:21)
[2017-01-26] MEDS: PANTOPRAZOLE 40 MG VIAL IV SCH (08:31)
--- NOTE | 2017-01-26 09:00 | NUR ---
RN NOTES SEDATION VACATION DONE. WITHDRAWS TO PAINFUL STIMULI. NON-VERBAL, NO TRACKING NOTED. WILL TITRATE ACCORDINGLY.
[2017-01-26 09:06] LABS: ABG BASE EXCESS -1.4 mmol/L; ABG OXYGEN SATURATION 95.8 % (92.0-98.5); ABG PCO2 27.3 mmHg (35.0-45.0); ABG PH 7.493 (7.350-7.450); ABG PO2 82.5 mmHg (75.0-100.0); ABG TOTAL HEMOGLOBIN 13.7 G/dL (12.0-16.0); AaDO2 171.3 mmHg; COHb 0.7 % (0.5-1.5); MetHb 0.9 % (0.0-1.5); O2Hb 94.3 % (94.0-97.0); PEEP,BG 5 cm H2O; SITE, ABG Right Radial; VT, ABG 450 mL
--- NOTE | 2017-01-26 09:20 | NUR ---
RN NOTES SEEN AND EXAMINED BY DR. JUDGE. AWARE OF CURRENT LAB VALUES AND CXR RESULT. PER MD, CANCEL US GUIDED THORACENTESIS TODAY, CXR IMPROVED. PT REMAINS SEDATED, INTUBATED AND ON MECH VENT. NO RESPIRATORY DISTRESS NOTED. NO SOB NOTED. KEPT HOB ELEVATED. ORDER NOTED AND CARRIED OUT.
--- NOTE | 2017-01-26 11:00 | NUR ---
RN NOTES SEEN AND EXAMINED BY DR. RUBIO. AWARE OF CURRENT LAB VALUES: ABC 15.9. AFEBRILE. ON OV ATB. HGB 12.4, HCT 38, SODIUM 140. ON D5W AT 50ML/HR. POTASSIUM 3.7, BUN 27, CREA 0.6. ALSO AWARE OF CXR RESULT. NOTIFIED THAT DR JUDGE CANCELLED US GUIDED THORACENTESIS, CXR SHOWS SMALL BILATERAL EFFUSION. PT REMAINS INTUBATED, TOLERATES VENT WELL. REMAINS ON DIPRIVAN. NO ORDER MADE AT THIS TIME.
[2017-01-26] MEDS ORDERED: IV SET PRIMARY PUMP SET 1 EA INFUS.SET MC ONE (12:12)
[2017-01-26] MEDS: IV D5W 1,000 ML IV SCH (12:16)
--- NOTE | 2017-01-26 15:00 | NUR ---
RN NOTES DR. RUBIO AT BEDSIDE WITH . HAD A LONG DISCUSSION REGARDING PT'S CURRENT CONDITION AND PLAN OF CARE. DR. RUBIO GAVE POSSIBLE OPTION FOR COMFORT MEASURES, EXPLAINED BENEFITS. PER , HE WILL THINK ABOUT IT AND WILL LET US KNOW HIS DECISION. WILL KEEP PT FULL CODE ORDERED FOR NOW UNTIL DECISION IS MADE. ALSO NOTIFIED DR. RUBIO ABOUT LAST TRIGLYCERIDE LEVEL. PT IS ON DIPRIVAN SINCE 01/17/17. MD ORDERED TRIGLYCERIDE LEVEL IN AM. NOTED AND CARRIED OUT.
[2017-01-26] MEDS: VANCOMYCIN 0.75 GM in IV D5W 250 ML IV SCH (16:21)
--- NOTE | 2017-01-26 18:30 | NUR ---
RN CLOSING NOTES PT REMAINS INTUBATED, ON MECH VENT. TOLERATING WELL. NO RESPIRATORY DISTRESS NOTED. NO SOB NOTED. NO SIGNS OF PAIN NOTED. KEPT COMFORTABLE. IV LINES IN PLACE. REMAINS ON DIPRIVAN, TITRATED. ON IVF. FC IN PLACE. TX PROVIDED ORDERED. KEPT CLEAN AND DRY. REPOSITIONED Q2. KEPT BLE ELEVATED. WILL ENDORSE FOR CONTINUITY OF CARE.
--- NOTE | 2017-01-26 19:49 | NUR ---
GRADUATE ASSISTANT ATHLETIC TRAINER NOTES RECEIVED PT IN BED, SEDATED ON DIPRIVAN AT 20MCG. TELE READS SR AT 64 BPM. ON VENT VIA 7.5 ETT, 24CM AC 14, TV 450, FIO2 40%, PEEP 5, DINA WELL. JIMENEZ CATH IN PLACE, DRAINING WELL. LENORA PICC LINE, RFA 18G IV, RUNNING AT D5W AT 50 ML/HR. PT IS FULL CODE AT THIS TIME. AWAITING HUSBANDS DECISION REGARDING POC. ON [employer] MATTRESS, HOB ELEVATED, SIDE RAIL X3. PT TURNED AND REPOSITIONED, EXTREMITIES OFFLOADED.
[2017-01-26] MEDS: ENOXAPARIN SODIUM 30 MG/0.3 ML DISP.SYRIN SQ SCH (21:56)
[2017-01-27] VITALS (37 sets, daily range): BP systolic 89–141; BP diastolic 51–80
[2017-01-27] MEDS ORDERED: IV SET PRIMARY PUMP SET 1 EA INFUS.SET MC ONE (01:03)
[2017-01-27] MEDS: PROPOFOL 100 ML IV PRN ×2 (01:08→17:28)
[2017-01-27 05:08] LABS: HEMATOCRIT 36 % (33-45); HEMOGLOBIN 11.8 g/dL (11.5-14.8); LYMPHOCYTES # (AUTO) 0.2 /CMM (0.8-4.8); LYMPHOCYTES % (AUTO) 1.1 % (20.0-44.0); MEAN CORPUSCULAR HEMOGLOBIN 28 PG (26.0-33.0); MEAN CORPUSCULAR HGB CONC 33 g/dl (31.0-36.0); MEAN CORPUSCULAR VOLUME 84 fL (82-100); MONOCYTES # (AUTO) 0.3 /CMM (0.1-1.30); MONOCYTES % (AUTO) 1.4 % (2.0-12.0); NEUTROPHILS # (AUTO) 19.8 /CMM (1.8-8.9); NEUTROPHILS % (AUTO) 97.5 % (43.0-81.0); PLATELET COUNT (AUTO) 151 /CMM (150-450); RDW COEFFICIENT OF VARIATION 14.3 (11.5-15.0); RED BLOOD CELL COUNT(AUTO) 4.21 MIL/uL (4.0-5.2); WHITE BLOOD COUNT (AUTO) 20.4 K/uL (4.3-11.0)
[2017-01-27 05:12] LABS: CALCIUM, SERUM 7.9 mg/dL (8.5-10.1); CREATININE 0.7 mg/dL (0.6-1.3); POTASSIUM 3.6 mmol/L (3.5-5.1)
[2017-01-27 06:01] LABS: LYMPHOCYTES % (MANUAL) 2 % (16-48); MONOCYTES % (MANUAL) 1 % (0-11.0); NEUTROPHILS % (MANUAL) 97 (42-76)
[2017-01-27 06:02] LABS: PLATELET ESTIMATE DECREASED
--- NOTE | 2017-01-27 07:05 | NUR ---
RN INITIAL NOTES RECEIVED PT INTUBATED. ON MECHANICAL VENT WITH FF SETTINGS: AC14, TV450, FI02 40%, PEEP +5. NO RESPIRATORY DISTRESS NOTED. NO SOB NOTED. NO SIGNS OF PAIN NOTED. KEPT HOB ELEVATED. LENORA PICC LINE IN PLACE. ON D5W AT 50ML/HR. ON DIPRIVAN AT 12MCG/KG/MIN, WILL TITRATE ACCORDINGLY. PT NPO. FC IN PLACE. NO HEMATURIA NOTED. KEPT COMFORTABLE. WILL CONTINUE TO MONITOR.
[2017-01-27] MEDS: PANTOPRAZOLE 40 MG VIAL IV SCH (08:05)
[2017-01-27] MEDS: methylPREDNISolone SOD SUCC 40 MG/ML VIAL IV SCH ×3 (08:05→16:31)
[2017-01-27] MEDS: IV D5W 1,000 ML IV SCH (08:33)
--- NOTE | 2017-01-27 09:00 | NUR ---
RN NOTES SEDATION VACATION DONE. PT TRYING TO OPEN EYES, MOVING HANDS. UNABLE TO FOLLOW SIMPLE COMMANDS. NO TRACKING NOTED. DIPRIVAN RESTARTED.
[2017-01-27] MEDS: VANCOMYCIN 0.75 GM in IV D5W 250 ML IV SCH (09:11)
--- NOTE | 2017-01-27 10:10 | NUR ---
RN NOTES SEEN AND EXAMINED BY DR RUBIO. AWARE OF CURRENT LAB VALUES. PT REMAINS INTUBATED, ON MECH VENT. NO RESPIRATORY DISTRESS NOTED. NO SOB NOTED. NO SIGNS OF PAIN NOTED. REMAINS ON DIPRIVAN. ON IVF. AWAITING FOR 'S DECISION REGARDING COMFORT MEASURES OR TRACH PLACEMENT. NO ORDER MADE AT THIS TIME.
--- NOTE | 2017-01-27 18:35 | NUR ---
RN CLOSING NOTES PT REMAINS [facility]UBATED. [facility]. NO RESPIRATORY DISTRESS NOTED. KEPT HOB ELEVATED. NO SIGNS OF PAIN NOTED. REMAINS SEDATED, ON DIPRIVAN. IV LINES IN PLACE. FC IN PLACE. KEPT CLEAN AND DRY. REPOSITIONED Q2. KEPT BLE ELEVATED. WILL ENDORSE FOR CONTINUITY OF CARE.
[2017-01-27] MEDS: ENOXAPARIN SODIUM 30 MG/0.3 ML DISP.SYRIN SQ SCH (21:20)
[2017-01-28] VITALS (56 sets, daily range): BP systolic 88–159; BP diastolic 44–91
[2017-01-28] MEDS: VANCOMYCIN 0.75 GM in IV D5W 250 ML IV SCH ×2 (03:31→21:28)
[2017-01-28 04:47] LABS: BASOPHILS # (AUTO) 0.1 /CMM (0.0-0.2); BASOPHILS % (AUTO) 0.3 % (0.0-2.0); HEMATOCRIT 32 % (33-45); HEMOGLOBIN 10.6 g/dL (11.5-14.8); LYMPHOCYTES # (AUTO) 0.3 /CMM (0.8-4.8); LYMPHOCYTES % (AUTO) 1.7 % (20.0-44.0); MEAN CORPUSCULAR HEMOGLOBIN 28 PG (26.0-33.0); MEAN CORPUSCULAR HGB CONC 34 g/dl (31.0-36.0); MEAN CORPUSCULAR VOLUME 85 fL (82-100); MONOCYTES # (AUTO) 0.6 /CMM (0.1-1.30); MONOCYTES % (AUTO) 3.5 % (2.0-12.0); NEUTROPHILS # (AUTO) 16.6 /CMM (1.8-8.9); NEUTROPHILS % (AUTO) 94.5 % (43.0-81.0); PLATELET COUNT (AUTO) 136 /CMM (150-450); RDW COEFFICIENT OF VARIATION 14.5 (11.5-15.0); RED BLOOD CELL COUNT(AUTO) 3.75 MIL/uL (4.0-5.2); WHITE BLOOD COUNT (AUTO) 17.5 K/uL (4.3-11.0)
[2017-01-28 04:57] LABS: CALCIUM, SERUM 7.7 mg/dL (8.5-10.1); CREATININE 0.7 mg/dL (0.6-1.3); POTASSIUM 3.8 mmol/L (3.5-5.1)
[2017-01-28] MEDS: IV D5W 1,000 ML IV SCH (06:15)
--- NOTE | 2017-01-28 08:00 | NUR ---
COMMUNITY ENGAGEMENT REPRESENTATIVE RECEIVED PT SEDATED WITH DIPRIVAN. ETT INTACT, CONNECTED TO VENT. ETT AT 23 CM AT THE LIPLINE. HAVING EPISODES OF BRADYCARDIA WITH PALPABLE PULSES. BP STABLE. PT ABLE TO WITHDRAW FROM PAIN BUT UNABLE TO INTERACT DURING SEDATION VACATION. NO FAMILY IN AT THIS TIME.
[2017-01-28] MEDS: PANTOPRAZOLE 40 MG VIAL IV SCH (09:10)
[2017-01-28] MEDS: methylPREDNISolone SOD SUCC 40 MG/ML VIAL IV SCH ×3 (09:10→17:00)
[2017-01-28 09:48] LABS: ABG BASE EXCESS -1.4 mmol/L; ABG OXYGEN SATURATION 97.2 % (92.0-98.5); ABG PCO2 26.3 mmHg (35.0-45.0); ABG PO2 102.8 mmHg (75.0-100.0); ABG TOTAL HEMOGLOBIN 11.2 G/dL (12.0-16.0); AaDO2 152.2 mmHg; COHb 0.2 % (0.5-1.5); MetHb 0.6 % (0.0-1.5); O2Hb 96.4 % (94.0-97.0); PEEP,BG 5 cm H2O; SITE, ABG Right Radial; VT, ABG 450 mL
--- NOTE | 2017-01-28 10:00 | NUR ---
ADMINISTRATIVE SPECIALIST SUCTIONED SMALL AMOUNTH THICK WHITE SECRETIONS FROM ETT. COPIOUS THICK UREÑA ORAL SECRETIONS SUCTIONED. REMAINS SEDATED. NO FAMILY IN AT THIS TIME.
--- NOTE | 2017-01-28 12:00 | NUR ---
INFECTION CONTROL PREVENTIONIST REPOSITIONED. NO NEW LESIONS SEEN. SUCTIONED ETT.
--- NOTE | 2017-01-28 12:00 | NUR ---
FLY RAISER LOCKSTITCH REMAINS SEDATED. NO VENT CHANGES MADE. AWAITING FAMILY.
--- NOTE | 2017-01-28 14:00 | NUR ---
ASPHALT LAYER NO CHANGE IN CONDITION. SUCTIONED AND REPOSITIONED.
[2017-01-28] MEDS ORDERED: IV SET PRIMARY PUMP SET 1 EA INFUS.SET MC ONE (14:19)
[2017-01-28] MEDS: PROPOFOL 100 ML IV PRN (14:24)
--- NOTE | 2017-01-28 16:00 | NUR ---
IT NETWORK ARCHITECT PT'S SISTER CAME IN TO SEE PT. REPORTED THAT PT'S WAS LEANING TOWARDS COMFORT CARE BUT HAD NOT COMMUNICATED THAT SENTIMENT WITH STAFF. ADVISED SISTER TO HAVE CALL US LATER IN THE DAY TO LET US KNOW HIS DECISION. NO CHANGE IN CONDITION.
--- NOTE | 2017-01-28 18:00 | NUR ---
LAND APPRAISER PT'S SISTER CALLED TO INFORM US THAT THE PT'S WOULD LIKE TO COME BACK TOMORROW TO VISIT AND TO GIVE INSTRUCTIONS REGARDING COMFORT CARE FOR PT. NO CHANGE IN CONDITION.
--- NOTE | 2017-01-28 20:00 | NUR ---
MUSIC EDUCATION ADJUNCT PROFESSOR - NOTES - RECEIVED PT IN BED INTUBATED. ON MECHANICAL VENT WITH SETTINGS: AC 14, TV450, FI02 40%, PEEP +5. NO RESPIRATORY DISTRESS NOTED. NO SOB NOTED. NO SIGNS OF PAIN NOTED. KEPT HOB ELEVATED. LENROA PICC LINE IN PLACE. ON D5W AT 50ML/HR. ON DIPRIVAN AT 15 MCG/KG/MIN, WILL TITRATE ACCORDINGLY. PT NPO. FC IN PLACE. NO HEMATURIA NOTED. KEPT COMFORTABLE. WILL CONTINUE TO MONITOR.
[2017-01-28] MEDS: ENOXAPARIN SODIUM 30 MG/0.3 ML DISP.SYRIN SQ SCH (20:33)
[2017-01-29] VITALS (27 sets, daily range): BP systolic 94–152; BP diastolic 45–87
[2017-01-29] MEDS: IV D5W 1,000 ML IV SCH (01:11)
[2017-01-29] MEDS ORDERED: IV SET PRIMARY PUMP SET 1 EA INFUS.SET MC ONE (04:23)
[2017-01-29 04:43] LABS: HEMATOCRIT 29 % (33-45); HEMOGLOBIN 9.7 g/dL (11.5-14.8); LYMPHOCYTES # (AUTO) 0.2 /CMM (0.8-4.8); MEAN CORPUSCULAR HEMOGLOBIN 28 PG (26.0-33.0); MEAN CORPUSCULAR HGB CONC 33 g/dl (31.0-36.0); MEAN CORPUSCULAR VOLUME 84 fL (82-100); MONOCYTES # (AUTO) 0.4 /CMM (0.1-1.30); MONOCYTES % (AUTO) 3.5 % (2.0-12.0); NEUTROPHILS # (AUTO) 11.7 /CMM (1.8-8.9); NEUTROPHILS % (AUTO) 94.5 % (43.0-81.0); PLATELET COUNT (AUTO) 117 /CMM (150-450); RDW COEFFICIENT OF VARIATION 14.2 (11.5-15.0); RED BLOOD CELL COUNT(AUTO) 3.52 MIL/uL (4.0-5.2); WHITE BLOOD COUNT (AUTO) 12.3 K/uL (4.3-11.0)
[2017-01-29] MEDS: PROPOFOL 100 ML IV PRN (04:54)
[2017-01-29 05:04] LABS: CALCIUM, SERUM 7.7 mg/dL (8.5-10.1); CREATININE 0.8 mg/dL (0.6-1.3); POTASSIUM 3.7 mmol/L (3.5-5.1)
--- NOTE | 2017-01-29 07:15 | NUR ---
RN INITIAL NOTES RECEIVED PT INTUBATED. ON [facility] VENT WITH FF SETTINGS: AC14, TV 450, FI02 40%, PEEP +5. HOB ELEVATED. NO RESPIRATORY DISTRESS NOTED. NO SOB NOTED. NO SIGNS OF PAIN NOTED. PT NPO. IV LINES IN PLACE. ON DIPRIVAN AT 15MCG/KG/MIN. ON D5W AT 50ML/HR. FC IN PLACE. WILL MONITOR FOR OUTPUT.PT COMFORTABLE. BLE ELEVATED. WILL MONITOR.
[2017-01-29] MEDS: PANTOPRAZOLE 40 MG VIAL IV SCH (08:10)
[2017-01-29] MEDS: methylPREDNISolone SOD SUCC 40 MG/ML VIAL IV SCH ×2 (08:10→12:08)
--- NOTE | 2017-01-29 09:00 | NUR ---
RN NOTES SEEN AND EXAMINED BY DR. ALVARENGA. AWARE OF CURRENT LAB VALUES AND CXR RESULT. MD AWARE PT NOTED WITH LITTLE HAND MOVEMENT AND TRYING TO OPEN EYES DURING SEDATION VACATION. UNABLE TO FOLLOW COMMANDS. STILL AWAITING FOR 'S DECISION. PER MD, HOLD DIPRIVAN FOR NOW. WILL MONITOR FOR ANY SIGNS OF DISTRESS. WILL CLOSELY MONITOR.
--- NOTE | 2017-01-29 10:55 | NUR ---
RN NOTES LEANDRA (SISTER) CAME IN BEHALF OF . PER SISTER, THEY DECIDED TO PUT HER ON COMFORT MEASURES. FAMILY OK WITH DRIP AND EXTUBATION. SISTER AND MADE AWARE OF COMFORT MEASURES PROCESS AND VERBALIZED UNDERSTANDING. CALLED DR. RUBIO. AWAITING CALL BACK.
[2017-01-29] MEDS ORDERED: LORAZEPAM INJ 2 MG/ML VIAL IV PRN (11:00)
[2017-01-29] MEDS ORDERED: MORPHINE SULFATE INJ 2 MG/ML DISP.SYRIN IV PRN (11:00)
--- NOTE | 2017-01-29 12:36 | NUR ---
RN NOTES DR. RUBIO IN THE UNIT. MD VERBALLY ORDERED TO DC ALL MEDS EXCEPT MORPHINE DRIP, ATIVAN AND MORPHINE PRN. WILL EXTUBATE AFTER MORPHINE DRIP IS STARTED. NO RESPIRATORY DISTRESS NOTED. NO SOB NOTED. NO SIGNS OF PAIN NOTED. WILL CONTINUE TO MONITOR.
[2017-01-29] MEDS ORDERED: SET PCA INFUSE SET 1 EA INFUS.SET MC ONE (12:37)
[2017-01-29] MEDS: MORPHINE SULFATE PF DRIP 250 MG in IV D5W 240 ML IV PRN (12:44)
[2017-01-29] MEDS ORDERED: DC PROPOFOL WHEN EXTUBATED XX PRN (13:00)
--- NOTE | 2017-01-29 14:55 | NUR ---
RN NOTES PT EXTUBATED ORDERED. ON MORPHINE DRIP. NO SIGNS OF RESPIRATORY DISTRESS NOTED. NO SOB NOTED. PLACED ON 02 VIA IL. HOB ELEVATED. WILL MONITOR
--- NOTE | 2017-01-29 14:55 | NUR ---
RT PER DR RUBIO ORDER PATIENT COMPASSIONATELY EXTUBATED AND PLACED ON 2L N/C. RN AT BEDSIDE
--- NOTE | 2017-01-29 18:30 | NUR ---
RN NOTES PT TRANSFERRED TO ROOM 306. REPORT GIVEN TO LANA GRAJEDA. NO RESPIRATORY DISTRESS NOTED. NO SOB NOTED. NO SIGNS OF PAIN NOTED. PT ON MORPHINE DRIP. LANA GRAJEDA TOOK OVER PT'S CARE.
--- NOTE | 2017-01-29 18:40 | NUR ---
MS TARAS RECEIVED PATIENT FROM ICU,CAME IN W/ SEPSIS SECONDARY TO PNA,RESPIRATORY FAILURE,S/P EXTUBATION TODAY AT 230 PM, PATIENT ON MORPHINE DRIP RUNNING AT 7MG/HR, INFUSING WELL AT RIGHT UPPER ARM PICC, JIMENEZ TO GRAVITY, DRAINING W/ YELLOWISH URINE OUTPUT, REPOSITIONE FOR COMFORT, ALL NEEDS ATTENDED.
--- NOTE | 2017-01-29 19:01 | NUR ---
MS RN ON BED, LOOKS COMFORTABLE,ALL NEEDS ATTENDED.
--- NOTE | 2017-01-29 19:40 | NUR ---
MS RN NOTE: PATIENT RESTING IN BED, NO ACUTE DISTRESS NOTED. BREATHING EVEN AND UNLABORED, NO SOB NOTED. PICC LINE TO LENORA IN PLACE, INFUSING MORPHINE DRIP AT 7MG/HR. JIMENEZ CATHETER IN PLACE, EMPTY AT THIS TIME. BED LOCKED AND IN LOWEST POSITION, CALL LIGHT IN REACH. WILL CONTINUE TO MONITOR.
--- NOTE | 2017-01-29 21:30 | NUR ---
MS RN NOTE: RECEIVED CALL FROM PATIENT BROTHER ROD AND SISTER LEANDRA, WANTED TO PROVIDE THE INFORMATION FOR HOME WHEN THE PATIENT HAS . ARRANGEMENT SET UP WITH [facility] AT [phone]. PATIENT BROTHER CONTACT INFORMATION ALSO PROVIDED, (HOME), (CELL). PATIENT SISTER LEANDRA INFORMATION, (HOME), (CELL). WILL CONTINUE TO MONITOR.
--- NOTE | 2017-01-30 04:45 | NUR ---
MS RN NOTE: PATIENT SLEEPING COMFORTABLE, NO ACUTE DISTRESS NOTED. BREATHING EVEN AND UNLABORED, NO SOB NOTED. PATIENT CONGESTED AND SUCTIONED OCCASIONALLY. MORPHINE DRIP AT 7MG/HR INFUSING TO LENORA PICC LINE. BED LOCKED AND IN LOWEST POSITION, CALL LIGHT IN REACH. WILL CONTINUE TO MONITOR.
--- NOTE | 2017-01-30 06:05 | NUR ---
MS RN NOTE: PATIENT RESTING IN BED, NO ACUTE DISTRESS NOTED. BREATHING EVEN AND UNLABORED, NO SOB NOTED. PICC LINE TO LENORA IN PLACE, INFUSING MORPHINE DRIP AT 7MG/HR. JIMENEZ CATHETER IN PLACE. BED LOCKED AND IN LOWEST POSITION, CALL LIGHT IN REACH. WILL ENDORSE TO DAY NURSE TO CONTINUE WITH PLAN OF CARE.
--- NOTE | 2017-01-30 07:20 | NUR ---
MS/RN AM NOTES RECEIVED PT IN BED, ASLEEP, NO S/SX SOB, OXYGEN DELIVERING 2L/M VIA N/C NO DISTRESS, NOTED, BREATHING EVEN, UNLABORED, HOB ELEVATED FOR COMFORT. NO SIGNS OF PAIN NOTED. PT IS NPO. IV PERIPHERAL LINE RFA INTACT, PATENT. JIMENEZ CATH DRAINING YELLOW CLEAR URINE. MORPHINE DRIP 7 MG/H CONTINUOUSLY. NO S/SX RESPIRATORY DEPRESSION NOTED. BED IN LOW POSITION, 2 SR UP FOR SAFETY, WITH CALL LIGHT WITHIN EASY REACH. WILL CONTINUE TO MONITOR ACCORDINGLY
--- NOTE | 2017-01-30 07:25 | NUR ---
MS RN NOTE: MORPHINE DRIP INCREASED WITH 8MG/HR, RATE VERIFIED DAY SHIFT NURSE. WILL CONTINUE TO MONITOR.
[2017-01-30 08:00] VITALS: BP 128/66
[2017-01-30] MEDS ORDERED: SET PCA INFUSE SET 1 EA INFUS.SET MC ONE (14:27)
[2017-01-30] MEDS: MORPHINE SULFATE PF DRIP 250 MG in IV D5W 240 ML IV PRN (14:29)
--- NOTE | 2017-01-30 14:47 | NUR ---
MS/RN NOTES PATIENT GRIMACING, RESPIRATION LABORED, MORPHINE DRIP INCREASED 10 MG, INFUSION RE-STARTED 250MG/250 ML, WITH SECOND RN (MD NISA, CHARGE NURSE AWARE. COMFORT MEASURES PROVIDED, WILL CONTINUE TO MONITOR
[2017-01-30 16:00] VITALS: BP 113/54
--- NOTE | 2017-01-30 18:00 | NUR ---
MS/RN NOTES PATIENT IS RESTING IN THE BED COMFORTABLY, RESPIRATION 8/M, UNLABORED, HOB ELEVATED, FOR COMFORT, MORPHINE DRIP CONTINUOUSLY DELIVERING 10 MG/H. IV PICC LINE LENORA WITH INTACT DRESSING, NO S/SX BLEEDING OR INFECTION, RIGHT FA PERIPHERAL LINE PATENT. FOLLEY CATHETER, INTACT, PATENT, 70 CC OUTPUT DURING THE SHIFT, YELLOW, CLOUDY URINE NOTED. KEPT CLEAN, DRY, COMFORTABLE ALL THE TIME, WITH CALL LIGHT WITHIN EASY REACH.WILL ENDORSE TO THE SUPERVISOR TUMBLERS NURSE ACCORDINGLY FOR DINA
--- NOTE | 2017-01-30 19:30 | NUR ---
MS RN NOTE: PATIENT RESTING IN BED, NO ACUTE DISTRESS NOTED. BREATHING EVEN AND UNLABORED, NO SOB NOTED. PICC LINE TO LENORA IN PLACE, INFUSING MORPHINE DRIP AT 10MG/HR. JIMENEZ CATHETER IN PLACE, EMPTY AT THIS TIME. BED LOCKED AND IN LOWEST POSITION, CALL LIGHT IN REACH. WILL CONTINUE TO MONITOR.
[2017-01-30 20:00] VITALS: BP 121/66
--- NOTE | 2017-01-31 01:45 | NUR ---
MS RN NOTE: PATIENT SLEEPING IN BED, NO ACUTE DISTRESS NOTED. BREATHING EVEN AND UNLABORED, NO SOB NOTED. PICC LINE TO LENORA IN PLACE, MORPHINE DRIP INCREASED TO 12MG/HR. JIMENEZ CATHETER IN PLACE. BED LOCKED AND IN LOWEST POSITION, CALL LIGHT IN REACH. WILL CONTINUE TO MONITOR.
--- NOTE | 2017-01-31 06:04 | NUR ---
MS RN NOTE: PATIENT SLEEPING IN BED, NO ACUTE DISTRESS NOTED. BREATHING EVEN AND UNLABORED, NO SOB NOTED. PICC LINE TO LENORA IN PLACE, MORPHINE DRIP AT 12MG/HR. JIMENEZ CATHETER IN PLACE. BED LOCKED AND IN LOWEST POSITION, CALL LIGHT IN REACH. WILL ENDORSE TO DAY NURSE TO CONTINUE WITH PLAN OF CARE.
[2017-01-31 08:00] VITALS: BP 130/56
--- NOTE | 2017-01-31 08:00 | NUR ---
MS RN NOTES PATIENT IS IN BED SLEEPING. PATIENT IS NONVERBAL. NO SOB OR ANY S/S OF DISTRESS NOTED. PT CURRENTLY ON 2LPM NASAL CANNULA. BREATHING IS EVEN AND UNLABORED. JIMENEZ CATHETER IS INTACT AND DRAINING CLEAR YELLOW URINE. IV IS INTACT AND PATENT. MORPHINE DRIP RUNNING AT 12MG/HR. BED IS IN LOW LOCKED POSITION. WILL CONTINUE TO MONITOR THROUGHOUT SHIFT AND CONTINUE TO PROVIDE COMFORT CARE.
--- NOTE | 2017-01-31 12:00 | NUR ---
MS RN NOTES PATIENT IS IN BED. CURRENTLY ON 2LPM VIA NASAL CANNULA. CONTINUOUS VISITING PROFESSOR MORPHINE DRIP RUNNING AT 12MG/HR. NO SOB OR ANY DISTRESS NOTED. PATIENT IS BEING KEPT COMFORTABLE. WILL CONTINUE TO MONITOR.
[2017-01-31] MEDS ORDERED: SET PCA INFUSE SET 1 EA INFUS.SET MC ONE (13:33)
[2017-01-31] MEDS: MORPHINE SULFATE PF DRIP 250 MG in IV D5W 240 ML IV PRN (13:50)
[2017-01-31 16:00] VITALS: BP 88/52
[2017-01-31 19:00] VITALS: BP 98/68
--- NOTE | 2017-01-31 19:08 | NUR ---
MS RN NOTES PATIENT IS IN BED. NONVERBAL. IV IS INTACT AND PATENT. JIMENEZ CATHETER IS INTACT, PATENT, AND DRAINING CLEAR YELLOW URINE OUTPUT WAS AT 160ML. COATER OPERATOR CONTINUOUS DRIP OF MORPHINE RUNNING AT 12MG/HR. PATIENT RECEIVING O2 VIA NASAL CANNULA AT 2LPM. NO SOB OR DISTRESS NOTED. BREATHING IS EVEN AND UNLABORED. PATIENT WAS KEPT COMFORTABLE THROUGHOUT SHIFT. WILL ENDORSE CARE TO PM SHIFT.
--- NOTE | 2017-01-31 19:30 | NUR ---
MS RN NOTE RECEIVED PATIENT FROM DAY SHIFT, PATIENT IS NON-VERBAL, ON BED REST, COMFORT MEASURE ONLY. ON NC 2L/MIN, BREATHING UNLABORED, LOOKS COMFORTABLE. GETTING OUTSIDE SALES ACCOUNT EXECUTIVE MORPHINE DRIP 12ML/HR. RIGHT PICC LINE IS PATENT AND INTACT, DRIP IS RUNNING. JIMENEZ CATH PRESENT WITH YELLOW URINE. SRX2, BED IN LOW POSITION, CALL LIGHT WITHIN REACH, WILL CONTINUE TO MONITOR PATIENT.
--- NOTE | 2017-02-01 06:35 | NUR ---
MS RN NOTE PATIENT SLEEPING IN BED, NO ACUTE DISTRESS NOTED. BREATHING EVEN AND UNLABORED, NO SOB NOTED. PICC LINE TO LENORA IN PLACE, MORPHINE DRIP AT 12MG/HR. JIMENEZ CATHETER IN PLACE. WILL ENDORSE TO DAY NURSE TO CONTINUE WITH PLAN OF CARE.
[2017-02-01 08:00] VITALS: BP 40/27
--- NOTE | 2017-02-01 08:00 | NUR ---
MS RN OPENING NOTES RECEIVED PATIENT SLEEPING IN BED. PATIENT IS NONVERBAL. NO DISTRESS OR ANY S/S OF SOB NOTED. BREATHING IS EVEN AND UNLABORED. PICC LINE IS PATENT AND INTACT. CONTINUOUS MORPHINE DRIP RUNNING AT 12MG/HR. JIMENEZ CATHETER IS INTACT AND PATENT, DRAINING CLEAR YELLOW URINE. PATIENT KEPT COMFORTABLE. WILL CONTINUE TO MONITOR THROUGHOUT SHIFT AND CONTINUE TO PROVIDE COMFORT MEASURES.
[2017-02-01] MEDS: MORPHINE SULFATE PF DRIP 250 MG in IV D5W 240 ML IV PRN ×2 (09:02→11:59)
--- NOTE | 2017-02-01 09:05 | NUR ---
MS RN NOTES MORPHINE DRIP INCREASED TO 13MG/HR. PATIENT IS COMFORTABLE. WILL CONTINUE TO MONITOR AND PROVIDE COMFORT MEASURES.
[2017-02-01] MEDS ORDERED: SET PCA INFUSE SET 1 EA INFUS.SET MC ONE (11:41)
--- NOTE | 2017-02-01 14:50 | NUR ---
Social service consult requested by WILTON Mathews for discussion with patient's family regarding hospice and CPR. SW called patient's sister Shayy at [phone] and at [phone] and there was no answer at either number. SW called at 2:29pm and at 2:47pm. SW left a voicemail after each call. SW will continue to follow up with patient's sister.
== END 2017-02-01 15:10 | disposition hospice, inpatient (51) | DRG 870 ==
LOC: ER 12:12 → ICU 17:32 → MED 01-29 18:29
PROVIDERS: ADMIT Internal Medicine; ATTEND Internal Medicine
PROC: 5A1955Z Respiratory Ventilation, Greater than 96 Consecutive Hours (ICD-10-PCS; principal; 2017-01-17)
PROC: 0BH17EZ Insertion of Endotracheal Airway into Trachea, Via Natural or Artificial Opening (ICD-10-PCS; 2017-01-17)
PROC: 02HV33Z Insertion of Infusion Device into Superior Vena Cava, Percutaneous Approach (ICD-10-PCS; 2017-01-17)
PROC: B548ZZA Ultrasonography of Superior Vena Cava, Guidance (ICD-10-PCS; 2017-01-17)
DX: A41.9 Sepsis, unspecified organism (principal); G93.41 Metabolic encephalopathy; I21.4 Non-ST elevation (NSTEMI) myocardial infarction; J15.6 Pneumonia due to other Gram-negative bacteria; N17.0 Acute kidney failure with tubular necrosis; J96.01 Acute respiratory failure with hypoxia; R65.21 Severe sepsis with septic shock; J44.0 Chronic obstructive pulmonary disease with (acute) lower respiratory infection; D68.59 Other primary thrombophilia; E87.0 Hyperosmolality and hypernatremia; J90 Pleural effusion, not elsewhere classified; J98.11 Atelectasis; C79.9 Secondary malignant neoplasm of unspecified site; F03.90 Unspecified dementia, unspecified severity, without behavioral disturbance, psychotic disturbance, mood disturbance, and anxiety; E03.9 Hypothyroidism, unspecified; I48.91 Unspecified atrial fibrillation; B95.62 Methicillin resistant Staphylococcus aureus infection as the cause of diseases classified elsewhere; C73 Malignant neoplasm of thyroid gland; E86.1 Hypovolemia; E87.6 Hypokalemia; I70.0 Atherosclerosis of aorta; M85.80 Other specified disorders of bone density and structure, unspecified site; Z51.5 Encounter for palliative care; Z66 Do not resuscitate
CPT/HCPCS: 31720; 36415; 36569; 36600; 70450-TC; 70490-TC; 71010-TC; 76770-TC; 80048-TC; 80053-TC; 80061-TC; 80076-TC; 80202-TC; 81000-TC; 82140-TC; 82306; 82728-TC; 82803-TC; 83540-TC; 83605-TC; 83735-TC; 84100-TC; 84439-TC; 84443-TC; 84478-TC; 84484-TC; 85025-TC; 85610-TC; 85730-TC; 87040-TC; 87070-TC; 87081-TC; 87086-TC; 93307-TC; 94002-TC; 94003-TC; 94762-TC; 94799-TC; 99082-TC; A4216; A4606; C1751; C9113; J0282; J0330; J0360; J0692; J1650; J2060; J2185; J2250; J2270; J2274; J2543; J2920; J3010; J3370; J3475; J3480; J3490; J7030; J7050; J7060; J7070; P9047; Z7610

== ENCOUNTER 2017-02-01 14:51 | Inpatient (IN) | payer OTHER ==
[~2017-02-01] VITALS: Ht 162.6 cm; Wt 63.5 kg
[~2017-02-01 14:51] MED LIST: ACET-73 PO; ACET325T53 PO; ACET650S11 RC; ASCO500T9 PO; AZIT250T PO; BISA10SU61 RC; CLON0.1T PO; CRAN425C PO; DOCU100T2 PO; LEVO25TA9 PO; MAGN400O6 PO; MULT1TAB11 PO; NA P133E RC; SACC250C6 PO; ZINC220T PO
--- NOTE | 2017-02-01 15:15 | NUR ---
MS RN NOTES PATIENT ADMITTED FROM [facility]- MED SURG. STATUS WAS CHANGED FROM MED SURG TO COMFORT CARE HOSPICE. PATIENT WAS EVALUATED BY [facility] W[facility] TENDER. ORDERS WERE GIVEN TO CONTINUE PREVIOUSLY PRESCRIBED ORDERS. PATIENT IS CURRENTLY NONVERBAL. NO SOB OR ANY S/S OF DISTRESS NOTED. PATIENT CURRENTLY ON 4LPM OXYGEN VIA NASAL CANNULA. JIMENEZ CATHETER IS INTACT AND DRAINING CLEAR YELLOW URINE. PICC LINE IS INTACT AND PATENT ON THE LENORA. CONTINUOUS MORPHINE DRIP RUNNING AT 13MG/HR VIA SHIP FITTER PUMP. BED IS IN LOW LOCKED POSITION. WILL CONTINUE TO MONITOR PATIENT THROUGHOUT SHIFT.
[2017-02-01] MEDS ORDERED: MORPHINE SULFATE INJ 2 MG/ML DISP.SYRIN IV PRN (15:36)
[2017-02-01] MEDS ORDERED: Z GUARD REMEDY 2 OZ OINT TP PRN (15:36)
--- NOTE | 2017-02-01 16:03 | NUR ---
Social service consult requested by WILTON Mathews for discussion with patient's family regarding hospice and CPR. Once again, SW called patient's sister Shayy at [phone] and at [phone] and there was no answer at either number. SW called at 4:01pm. SW left a voicemail after each call. Also, at 3:59pm, JEFERSON called patient's brother Lg at [phone]. However, there was no answer. SW left a voicemail. JEFERSON will continue to follow up with patient's sister and brother.
[2017-02-01] MEDS: MORPHINE SULFATE PF DRIP 250 MG in IV D5W 240 ML IV PRN ×2 (16:25→18:42)
--- NOTE | 2017-02-01 18:58 | NUR ---
MS GRAJEDA CLOSING NOTES PATIENT IS IN BED. PATIENT IS NONVERBAL. PICC LINE IS PATENT AND INTACT. JIMENEZ CATHETER IS PATENT, INTACT. DRAINING CLEAR YELLOW URINE. CONTINUOUS MORPHINE DRIP CURRENTLY RUNNING AT 14MG/HR VIA ARCHITECTURE TECHNICIAN PUMP. PATIENT SPO2 AT 95% ON 4LPM O2 VIA NASAL CANNULA. BED IS IN LOW LOCKED POSITION. PATIENT HAS BEEN KEPT COMFORTABLE. WILL ENDORSE CARE TO PM SHIFT. Addendum: 02/01/17 at 1905 by LAURA REYNOLDS RN PATIENT BREATHING EVEN AND UNLABORED. NO SOB NOTED. NO S/S OF DISTRESS NOTED.
--- NOTE | 2017-02-01 19:30 | NUR ---
ACCOUNT UNDERWRITER INITIAL NOTES RECEIVED REPORT FROM AM NURSE HUSSAIN PT ON HOSPICE CARE , APPEARS COMFORTABLE, ON CONTINUED MORPHINE DRIP AT 14MG/HR . SKIN PALE AND WARM TO TOUCH, WITH JIMENEZ NO OUTPUT NOTED AT THIS TIME. KEPT HER WARM AND COMFORTABLE AT ALL TIMES. ON ISOLATION PRECAUTION. BED IN LOW WITH SIDE RAILSX2 UP AND BED LOCK IN POSITION. WILL CONTINUE TO MONITOR.
[2017-02-01 20:00] VITALS: BP 90/50
[2017-02-02 06:50] VITALS: BP 64/41
[2017-02-02] MEDS ORDERED: SET PCA INFUSE SET 1 EA INFUS.SET MC ONE ×2 (07:22→20:41)
[2017-02-02] MEDS: MORPHINE SULFATE PF DRIP 250 MG in IV D5W 240 ML IV PRN ×2 (07:25→22:11)
--- NOTE | 2017-02-02 07:49 | NUR ---
ROADWAY TECHNICIAN/CLOSING NOTES PT RESTING COMFORTABLY , STILL ON MORPHINE DRIP ADJUST TO 16MG/HR ORDERED BY 2 RN.PRESTON AND MICHAELA. SINUS RHYTHM HEART RATE 64 IN TELE MONITOR. KEPT HER COMFORTABLE AT ALL TIMES. ENDORSE,
--- NOTE | 2017-02-02 07:52 | NUR ---
AM RN NOTE Received patient lying in her bed with eyes closed appears comfortable, on hospice care. IV sites intact and patent. On Morphine drip @ 16mg/hr. Skin pale and warm to touch. F/C intact.Bed in low locked position. Will continue to monitor.
--- NOTE | 2017-02-02 08:30 | NUR ---
Pt's family returned SW's call last night around 7:30pm and 8:30pm. SW returned called at about 8:26am. JEFERSON called patient's brother Lg at [phone], but he did not answer. Also, JEFERSON returned pt's sister Shayy's call at [phone], but she also did not answer. JEFERSON will await their calls back and continue to follow up with pt's family. Addendum: 02/02/17 at 1620 by EUFEMIA GOVEA JEFERSON spoke to Med/Surg WILTON Mathews who reported that the issue had been resolved the prior night [02/01/2017].
--- NOTE | 2017-02-02 11:16 | NUR ---
AM RN NOTE MRSA order placed per Infection Control Nurse.
--- NOTE | 2017-02-02 14:30 | NUR ---
AM RN NOTE Patient lying in her bed with eyes closed. On O2 3L/min via NC. Morphine drip increased to 17mg/hr for comfort. Repositioned. F/C intact and patent draining with dark yellow colored urine, slightly output noted in catheter bag. Bed in low locked position. Will continue to monitor.
--- NOTE | 2017-02-02 17:55 | NUR ---
AM RN NOTE Patient lying in her bed with eyes closed, on O2 3L/min via NC O2 sat 96%. Morphine drip increased to 18mg/hr for comfort. On tele monitor SR 70's. Kept clean, dry and comfortable. Will continue to monitor.
--- NOTE | 2017-02-02 18:44 | NUR ---
AM RN NOTE Patient lying in her bed with eyes closed, Morphine drip continue on 18mg/hr for comfort. On tele monitor SR 68's. Kept clean, dry and comfortable. Will endorse care to next shift.
--- NOTE | 2017-02-02 19:00 | NUR ---
MS RN NOTES RECEIVED PATIENT IN BED AWAKE, NON VERBAL. IN STABLE CONDITION NO S/S OF DISTRESS NOTED. IV SITE INTACT W/ NO S/S OF INFILTRATION NOTED. CALL LIGHT WITHIN REACH. BED AT LOW POSITION AND LOCKED FOR SAFETY. WILL CONTINUE TO MONITOR ACCORDINGLY. BURRING MACHINE OPERATOR PUMP ONGOING. ON TELE MONITOR, FC INTACT, NPO.
[2017-02-02 20:00] VITALS: BP 67/35
[2017-02-03] VITALS: BP 62/34
[2017-02-03 04:00] VITALS: BP 66/32
--- NOTE | 2017-02-03 06:14 | NUR ---
INCREASE PREFORMS LAMINATOR PUMP MORPHINE DOSE FROM 18MG/HR TO 20 MG/HR PATIENT SHOWING NO S/S OF DISTRESS OF NOW
--- NOTE | 2017-02-03 06:34 | NUR ---
MS RN CLOSING NOTES PATIENT COMFORTABLY IN BED ASLEEP AND EASILY AWAKEN, HEAD OF BED ELEVATED FOR BETTER LUNG EXPANSION AND BETTER CIRCULATION, ON 02 2LPM VIA NC 02 SAT 92%, PATIENT NON VERBAL, ON MORPHINE DRIP ONGOING 20MG/HR CONTINUOUS ON TRASHMAN SR 61'S. ON HOSPICE, PICC SITE INTACT W/ NO S/S OF INFILTRATION NOTED. RESPIRATIONS EVEN UNLABORED BREATH SOUNDS. APICAL PULSE REGULAR; GOOD SKIN CARE PROVIDED. PATIENT IN STABLE CONDITION WITH NO SOB NO S/S OF DISTRESS NO NAUSEA AND VOMITING NO PAIN, SAFETY ENVIRONMENT PROVIDED. FREE OF CLUTTERS, SAFE HAZARD FREE ENVIRONMENT. NEEDS ATTENDED AND ANTICIPATED, NURSING CARE RENDERED, KEPT CLEAN AND DRY AND COMFORTABLE.. CALL LIGHT IN REACH, BED LOWERED AND LOCKED, SR X2 FOR SAFETY AND WILL ENDORSE CONTINUE PLAN OF CARE.
--- NOTE | 2017-02-03 07:26 | NUR ---
REVIEW COORDINATOR OPENING NOTE: PATIENT RECEIVED IN BED AT MODERATE HIGH BACKREST POSITION. NON-VERBAL AND ON HOSPICE CARE. ON TELE-MONITORING WITH CURRENT READING OF SR HR OF 65. ON 02 VIA N/C AT 2LPM, BREATHING EVEN WITH SP02 OF 94%. LENORA PICC LINE INTACT AND PATENT WITH MORPHINE DRIP INFUSING AT 20ML/HR, NO SIGNS OF INFILTRATION NOTED. BED LOCKED AND IN LOWEST POSITION, CALL LIGHT IN REACH. ALL SAFETY PRECAUTIONS MAINTAINED. WILL CONTINUE TO MONITOR ACCORDINGLY.
[2017-02-03 08:00] VITALS: BP_SYST 68; BP_SYST 90; BP_DIAS 34; BP_DIAS 42
[2017-02-03 12:00] VITALS: BP 90/42
[2017-02-03] MEDS ORDERED: SET PCA INFUSE SET 1 EA INFUS.SET MC ONE (12:51)
[2017-02-03] MEDS: MORPHINE SULFATE PF DRIP 250 MG in IV D5W 240 ML IV PRN (12:58)
[2017-02-03 16:00] VITALS: BP 105/46
--- NOTE | 2017-02-03 18:44 | NUR ---
PATIENT IN BED AT MODERATE HIGH BACKREST. MAINTAINED ON DNR STATUS. COMFORT CARE PROVIDED. ON TELE-MONITORING WITH CURRENT READING OF SR AND HR OF 78. CONTINUES ON O2 INHALATION VIA N/C AT 2LPM, 02 SAT THIS TOUR B/W 84-90%. JIMENEZ CATHETER IN PLACE AND PATENT WITH OUTPUT OF 5ML THIS SHIFT. MAINTAINED ON MORPHINE DRIP, CURRENT RATE IS 25ML(MG)/HR. ALL REQUIRED NURSING CARE PROVIDED. WILL ENDORSED TO FOLDING MACHINE OPERATOR RN FOR DINA.
[2017-02-03 20:00] VITALS: BP 103/45
--- NOTE | 2017-02-03 20:00 | NUR ---
MS/RN OPENING NOTES PATIENT IN BED, HOB ELEVATED. REQUIRE ASSISTANCE EXTENSIVE FOR COMFORT MEASURES. ON HOSPICE CARE WILL MONITOR FOR ANY CHANGE OF CONDITION. ENDORSEMENT GIVEN BY AM RN FOR HOSPICE CARE WITH O2 SAT AT 85%. B/P 103/45. NO FEVER AT THIS TIME . ON NPO STATUS. MONITORING FOR ANY S/S OF SOB OR DISTRESS.
[2017-02-04] VITALS: BP 125/55
[2017-02-04] MEDS: MORPHINE SULFATE PF DRIP 250 MG in IV D5W 240 ML IV PRN ×2 (00:27→10:41)
--- NOTE | 2017-02-04 00:30 | NUR ---
ms/rn notes PATIENT MORPHINE DRIP 1 UNIT REPLACED BAG AT 250MG/250MLWITNESS AND VERIFIED BY RN DEAN. WASTE 3ML . WILL MONITOR.
--- NOTE | 2017-02-04 02:57 | NUR ---
TELE/RN NOTES PATIENT ON TELE READING SR AT 97 WITH O2 SAT AT 83% AT 4L PATIENT BREATHING USING ACCESSORY MUSCLES. UNABLE TO BE AWAKEN W/ VOICE , REQUIRE DEEP TOUCH TO BE AWAKEN .ON SENIOR MILITARY ANALYST MORPHINE RUNNING AT 25 MG. KEPT COMFORTABLE AND ASSIST W/ CARE.
[2017-02-04 04:00] VITALS: BP 85/40
--- NOTE | 2017-02-04 07:45 | NUR ---
RN NOTES PATIENT ON TELE READING SR AT 89 WITH O2 SAT AT 83% AT 4L PATIENT BREATHING USING ACCESSORY MUSCLES. UNABLE TO BE AWAKEN W/ VOICE , REQUIRE DEEP TOUCH TO BE AWAKEN .ON DRAFTING LAYOUT WORKER MORPHINE RUNNING AT 25 MG. PATIENT CONTINUED ON HOSPICE CARE WILL CONTINUE TO MONITOR AND KEEP COMFORTABLE
[2017-02-04 08:00] VITALS: BP_SYST 94; BP_SYST 95; BP_DIAS 43
--- NOTE | 2017-02-04 09:00 | NUR ---
RN NOTES 2 RN WITNESS INCREASE DOSE OF MORPHINE DRIP TO 30MG/HR ORDERED BY GROUP SEGMENT CONSULTANT, PT NOTED WITH INCREASED RESPIRATORY EFFORT AND USE OF ACCESSORY MUSCLES, WILL CONTINUE TO MONITOR
[2017-02-04] MEDS: LORAZEPAM INJ 2 MG/ML VIAL IV PRN ×2 (09:30→12:26)
--- NOTE | 2017-02-04 09:56 | NUR ---
RN NOTES PATIENT NOTED WITH CONTINUED USE OF ACCESSORY MUSCLES FOR RESPIRATORY, NO FACIAL GRIMACING OR GUARDED MOVEMENT NOTED, KEPT CLEAN DRY AND COMFORTABLE CALL LIGHT WITHIN EASY REACH, WILL CONTINUE TO MONITOR
[2017-02-04] MEDS ORDERED: SET PCA INFUSE SET 1 EA INFUS.SET MC ONE (10:37)
[2017-02-04 15:16] VITALS: BP 48/21
--- NOTE | 2017-02-04 15:17 | NUR ---
RN NOTES PATIENT NOTED WITH DECREASED OXYGEN SATURATION, WITH USE OF ACCESSORY MUSCLES FOR RESPIRATORY EFFORT, NO FACIAL GRIMACING OR GUARDED MOVEMENT NOTED, WILDLIFE TECHNICIAN AWARE OF PATIENT STATUS PT CONTINUED ON HOSPICE CARE, COMFORT MEASURES PROVIDED
--- NOTE | 2017-02-04 15:45 | NUR ---
RN NOTES NOTED PT WITH NO RESPIRATIONS, VITAL SIGNS UNAPPRECIATED, CALLED CHARGE NURSE TO ASSESS PT, UNABLE TO AUSCULTATE BREATH SOUNDS, NOT ABLE TO AUSCULTATE APICAL PULSE. MADE RAIL MANAGER EKATERINA AWARE, CALL [facility] TO NOTIFY OF PT EXPIRATION,SPOKE TO CONNIE GRAJEDA, CALLED [facility] SPOKE TO [facility], SISTER LEANDRA ALSO MADE AWARE, POST MORTEM CARE PROVIDED, BELONGINGS SENT WITH PT Addendum: 02/04/17 at 1850 by BRITANY HONEYCUTT RN RN NOTES TIME OF PRONOUNCED AT 1525
== END 2017-02-04 15:35 | disposition expired | DRG 720 ==
LOC: MED 14:51 → HOSPICE 15:10
PROVIDERS: ADMIT Nurse Practitioner Acute Care; ATTEND Nurse Practitioner Acute Care
DX: A41.9 Sepsis, unspecified organism (principal); I21.4 Non-ST elevation (NSTEMI) myocardial infarction; J96.01 Acute respiratory failure with hypoxia; N17.0 Acute kidney failure with tubular necrosis; R65.21 Severe sepsis with septic shock; Z51.5 Encounter for palliative care; G93.41 Metabolic encephalopathy; C79.9 Secondary malignant neoplasm of unspecified site; D68.59 Other primary thrombophilia; F03.90 Unspecified dementia, unspecified severity, without behavioral disturbance, psychotic disturbance, mood disturbance, and anxiety; C73 Malignant neoplasm of thyroid gland; E03.9 Hypothyroidism, unspecified; I48.91 Unspecified atrial fibrillation; J44.9 Chronic obstructive pulmonary disease, unspecified; B95.62 Methicillin resistant Staphylococcus aureus infection as the cause of diseases classified elsewhere
CPT/HCPCS: 87081-TC; J2060; J2274; J7060